=== PATIENT | female | born 1945 | race Hispanic/Latino ===

== ENCOUNTER 2018-06-26 01:02 | Inpatient (IN) | payer MEDICARE | END 2018-07-07 19:40 | LOC: EDH 01:02 → 2DH 06-30 18:31 → 2CV 07-01 04:50 → 2CH 07-02 15:06 → 2AH 07-05 14:21 → EDHIP 02:50 → 4CH 08:12 | DX: N17.9 Acute kidney failure, unspecified (principal); I50.33 Acute on chronic diastolic (congestive) heart failure; I63.9 Cerebral infarction, unspecified; J96.01 Acute respiratory failure with hypoxia; I13.2 Hypertensive heart and chronic kidney disease with heart failure and with stage 5 chronic kidney disease, or end stage renal disease; N39.0 Urinary tract infection, site not specified; Z68.41 Body mass index [BMI] 40.0-44.9, adult; S06.9X9A Unspecified intracranial injury with loss of consciousness of unspecified duration, initial encounter; Z99.11 Dependence on respirator [ventilator] status; N18.5 Chronic kidney disease, stage 5; Z82.3 Family history of stroke; D63.8 Anemia in other chronic diseases classified elsewhere; E11.21 Type 2 diabetes mellitus with diabetic nephropathy; E11.22 Type 2 diabetes mellitus with diabetic chronic kidney disease; E11.40 Type 2 diabetes mellitus with diabetic neuropathy, unspecified; E66.01 Morbid (severe) obesity due to excess calories; I65.23 Occlusion and stenosis of bilateral carotid arteries; N18.6 End stage renal disease ==

== ENCOUNTER 2018-11-03 13:38 | Emergency (ER) | payer MEDICARE ==
[~2018-11-03 13:38] MED LIST: ALPR0.5T8 PO; BENZ200C53 PO; CITA40TA6 PO; CLOP75TA14 PO; CYCL30DR OU; FAMO20TA8 PO; FLUT16H EN; FURO80TA3 PO; GABA-529 PO; INSU100V12 SQ; MAGOX PO; METO2.5T2 PO; MONT10TA24 PO; OLOP5DRO14 OU; ONDA4TAB10 PO; PIND10TA2 PO
[2018-11-03] MEDS ORDERED: DEXTROSE 50%-WATER 50 ML DISP.SYRIN IV ONE (14:45)
[2018-11-03 14:49] LABS: BASOPHILS % (AUTO) 0.7 % (0.0-5.0); CREATININE 2.5 mg/dL (0.5-1.5); HEMATOCRIT 43.3 % (36-48); LYMPHOCYTES % (AUTO) 17.8 % (21.0-51.0); MEAN CORPUSCULAR HEMOGLOBIN 31.2 pg (27.0-33.0); MEAN CORPUSCULAR HGB CONC 33.2 g/dL (32.0-36.0); MONOCYTES % (AUTO) 5.2 % (3.0-13.0); NEUTROPHILS % (AUTO) 73.3 % (40.0-77.0); NUCLEATED RED BLOOD CELLS 0.1 % (0.0-0.19); PLATELET COUNT (AUTO) 180 K/uL (130-400); POTASSIUM 4.5 mmol/L (3.5-5.1); RED CELL DISTRIBUTION WIDTH 16.5 % (11.0-15.5); WHITE BLOOD COUNT (AUTO) 8.9 K/uL (4.8-10.8)
[2018-11-03 14:54] LABS: ALBUMIN 3.4 g/dL (3.5-5.0); BILIRUBIN,DIRECT 0.1 mg/dL (0.0-0.3); BILIRUBIN,TOTAL 0.3 mg/dL (0.2-1.0)
== END 2018-11-03 18:17 | disposition home or self-care (01) ==
LOC: EDH 13:38
DX: E11.649 Type 2 diabetes mellitus with hypoglycemia without coma (principal); I12.0 Hypertensive chronic kidney disease with stage 5 chronic kidney disease or end stage renal disease; E11.22 Type 2 diabetes mellitus with diabetic chronic kidney disease; N18.6 End stage renal disease; Z86.73 Personal history of transient ischemic attack (TIA), and cerebral infarction without residual deficits; Z90.49 Acquired absence of other specified parts of digestive tract; Z98.890 Other specified postprocedural states; Z99.2 Dependence on renal dialysis
CPT/HCPCS: 36415; 80048; 80076; 82550; 82948 ×3; 83690; 84484; 85025; 93005; 96374; 99285; J7070

== ENCOUNTER 2018-11-13 06:48 | Emergency (ER) | payer MEDICARE ==
[2018-11-13 07:32] LABS: EOSINOPHILS % (AUTO) 8.7 % (0.0-8.0); HEMATOCRIT 36.9 % (36-48); LYMPHOCYTES % (AUTO) 28.9 % (21.0-51.0); MEAN CORPUSCULAR HEMOGLOBIN 30.8 pg (27.0-33.0); MEAN CORPUSCULAR HGB CONC 32.4 g/dL (32.0-36.0); MEAN CORPUSCULAR VOLUME 95.2 fL (79-99); MONOCYTES % (AUTO) 12.2 % (3.0-13.0); NEUTROPHILS % (AUTO) 49.2 % (40.0-77.0); PLATELET COUNT (AUTO) 229 K/uL (130-400); RED BLOOD CELL COUNT(AUTO) 3.88 MIL/uL (4.00-5.50); RED CELL DISTRIBUTION WIDTH 17.3 % (11.0-15.5); WHITE BLOOD COUNT (AUTO) 6.5 K/uL (4.8-10.8)
[2018-11-13 07:58] LABS: INR 0.95 (0.85-1.15)
[2018-11-13 08:15] LABS: APPEARANCE,URINE Clear (CLEAR); BILIRUBIN,URINE Negative (NEGATIVE); COLOR,URINE Yellow (YELLOW); GLUCOSE, URINE (UA) Negative (NEGATIVE); KETONES,URINE Negative (NEGATIVE); LEUKOCYTE ESTERASE ,URINE Trace (NEGATIVE); NITRATE,URINE Negative (NEGATIVE); OCCULT BLOOD,URINE Negative (NEGATIVE); PH,URINE 5.5 (5.0-8.0); PROTEIN,URINE Negative (NEGATIVE); UROBILINOGEN,URINE 0.2 mg/dL (0.2-1.0)
[2018-11-13 08:18] LABS: ALBUMIN 3.2 g/dL (3.5-5.0); BILIRUBIN,TOTAL 0.2 mg/dL (0.2-1.0); CREATININE 3.1 mg/dL (0.5-1.5); TOTAL PROTEIN, SERUM 6.6 g/dL (6.0-8.3)
[2018-11-13 08:30] LABS: BACTERIA,URINE Rare /HPF (None Seen); RBC,URINE None Seen /HPF (0-1); SQUAMOUS EPITHELIAL CELL,UR 0-2 /HPF (0-2); WBC,URINE 0-1 /HPF (0-1)
[2018-11-13] MEDS ORDERED: DEXTROSE 50%-WATER 50 ML DISP.SYRIN IV ONE (10:07)
[2018-11-13] MEDS ORDERED: LIDOCAINE HCL 1% MDV 50ML VIAL ONE (10:38)
== END 2018-11-13 15:20 | disposition home or self-care (01) ==
LOC: EDH 06:48
DX: T82.898A Other specified complication of vascular prosthetic devices, implants and grafts, initial encounter (principal); I12.0 Hypertensive chronic kidney disease with stage 5 chronic kidney disease or end stage renal disease; E11.22 Type 2 diabetes mellitus with diabetic chronic kidney disease; N18.6 End stage renal disease; E11.649 Type 2 diabetes mellitus with hypoglycemia without coma; E78.5 Hyperlipidemia, unspecified; Z86.73 Personal history of transient ischemic attack (TIA), and cerebral infarction without residual deficits; Z99.2 Dependence on renal dialysis; Z90.49 Acquired absence of other specified parts of digestive tract; Z98.890 Other specified postprocedural states
CPT/HCPCS: 36415; 36558; 71045; 77001; 80053; 81001; 82550; 82948 ×2; 84484; 85025; 85610; 85730; 87804 ×2; 93005; 96374; 99285; C1750; C1769 ×3; C1894; J1644 ×2; J3490; J7070

== ENCOUNTER 2019-11-11 16:00 | Inpatient (IN) | payer MEDICARE ==
[~2019-11-11] VITALS: Ht 154.9 cm; Wt 85.4 kg
[~2019-11-11 16:00] MED LIST changes: +ALPR1TAB7 PO; +ARIP10TA16 PO; +ASPI-1005 PO; +ATOR20TA65 PO; -BENZ200C53 PO; +BUDE10.2 IH; +CITA-107 PO; -CITA40TA6 PO; -CLOP75TA14 PO; -CYCL30DR OU; +DOCU240C80 PO; -FAMO20TA8 PO; -FLUT16H EN; +FLUT16H NS; +FOLI1TAB85 PO; +FURO40TA5 PO; -FURO80TA3 PO; -INSU100V12 SQ; +INSU100V37 SQ; +L.AC1CAP6 PO; +LEVO500T89 PO; -MAGOX PO; -METO2.5T2 PO; -MONT10TA24 PO; +MONT10TA26 PO; +NITR0.4T50 SL; -OLOP5DRO14 OU; -ONDA4TAB10 PO; +SEVE800T7 PO
[2019-11-11 16:34] LABS: EOSINOPHILS % (AUTO) 5.6 % (0.0-8.0); HEMATOCRIT 36.7 % (36-48); LYMPHOCYTES % (AUTO) 25.6 % (21.0-51.0); MEAN CORPUSCULAR HEMOGLOBIN 32.5 pg (27.0-33.0); MEAN CORPUSCULAR HGB CONC 32.2 g/dL (32.0-36.0); MEAN CORPUSCULAR VOLUME 101.1 fL (79-99); MONOCYTES % (AUTO) 9.9 % (3.0-13.0); NEUTROPHILS % (AUTO) 57.3 % (40.0-77.0); PLATELET COUNT (AUTO) 298 K/uL (130-400); RED BLOOD CELL COUNT(AUTO) 3.63 MIL/uL (4.00-5.50); RED CELL DISTRIBUTION WIDTH 13.9 % (11.0-15.5); WHITE BLOOD COUNT (AUTO) 8.6 K/uL (4.8-10.8)
[2019-11-11 17:40] LABS: CARBON DIOXIDE 25 mmol/L (21-32); CHLORIDE 102 mmol/L (101-111); CREATININE 3.3 mg/dL (0.5-1.5); GLOMERULAR FILTR. RATE CALC 15 mL/min (>60); GLUCOSE,RANDOM 83 mg/dL (70-105); POTASSIUM 4.4 mmol/L (3.5-5.1); SODIUM SERUM 138 mmol/L (136-145); UREA NITROGEN, BLOOD 26 mg/dL (7-18)
[2019-11-11 17:41] LABS: PARTIAL THROMBOPLASTIN TIME 27.8 SEC (26.3-35.5); PROTHROMBIN TIME 10.8 SEC (9.6-11.6)
[2019-11-11 17:50] LABS: ALANINE AMINOTRANSFERASE 17 U/L (12-78); ALBUMIN 3.3 g/dL (3.5-5.0); ASPARTATE AMINOTRANSFERASE 21 U/L (10-37); BILIRUBIN,DIRECT 0.1 mg/dL (0.0-0.3); BILIRUBIN,TOTAL 0.4 mg/dL (0.2-1.0); CREATINE KINASE, TOTAL 60 U/L (21-232); TOTAL PROTEIN, SERUM 7.2 g/dL (6.0-8.3); TROPONIN I < 0.04 ng/mL (0.00-0.06)
[2019-11-11] MEDS ORDERED: HEPARIN SODIUM 5000UNIT/ML 1ML VIAL ONE (18:45)
[2019-11-11] MEDS ORDERED: ONDANSETRON HCL 4 MG/2 ML VIAL IV PRN (20:30)
[2019-11-11] MEDS ORDERED: HEPARIN SODIUM 5000UNIT/ML 1ML VIAL SQ PRN (20:45)
[2019-11-11] MEDS ORDERED: FAMOTIDINE/PF 20 MG/2 ML VIAL IV ONE (21:00)
[2019-11-11] MEDS ORDERED: FAMOTIDINE/PF 20 MG/2 ML VIAL IV SCH (21:00)
[2019-11-11] MEDS ORDERED: HEPARIN 25000 UNITS/250 ML D5W 250 ML IV ONE (21:00)
[2019-11-11 21:01] LABS: HEMOGLOBIN A1C 6.2 % (4.0-6.0)
[2019-11-11 23:25] VITALS: BP 160/66
--- NOTE | 2019-11-12 | NUR ---
NEW ADMISSION PT RECEIVED INTO ROOM 420 VIA STRETCHER, HEPARIN GTT INFUSING WITHOUT DIFFICULTY. PT AAOX4, CURRENTLY DENIES ANY PAIN. PT PLEASANT AND COOPERATIVE. PT ORIENTED TO ROOM, CALLBELL. TELE PACK APPLIED. NURSING DATA BASE COMPLETED, NURSING ASSESSMENT COMPLETED SEE FLOW SHEET. FAMILY HISTORY COMPLETED.
[2019-11-12] MEDS ORDERED: METO-408 PO (02:10)
[2019-11-12] MEDS ORDERED: LIDOCAINE CREAM (02:25)
[2019-11-12] MEDS ORDERED: TRAM50TA4 PO (02:25)
[2019-11-12] MEDS ORDERED: OFLO5DRO21 OT (02:25)
[2019-11-12 04:09] VITALS: BP 137/63
[2019-11-12 04:09] LABS: EOSINOPHILS % (AUTO) 7.6 % (0.0-8.0); HEMATOCRIT 33.5 % (36-48); LYMPHOCYTES % (AUTO) 34.2 % (21.0-51.0); MEAN CORPUSCULAR HEMOGLOBIN 32.1 pg (27.0-33.0); MEAN CORPUSCULAR HGB CONC 31.3 g/dL (32.0-36.0); MEAN CORPUSCULAR VOLUME 102.4 fL (79-99); NEUTROPHILS % (AUTO) 45.6 % (40.0-77.0); PLATELET COUNT (AUTO) 219 K/uL (130-400); RED BLOOD CELL COUNT(AUTO) 3.27 MIL/uL (4.00-5.50)
[2019-11-12 04:28] LABS: ALBUMIN 2.9 g/dL (3.5-5.0); BILIRUBIN,TOTAL 0.3 mg/dL (0.2-1.0); CREATININE 3.4 mg/dL (0.5-1.5); POTASSIUM 3.7 mmol/L (3.5-5.1); TOTAL PROTEIN, SERUM 6.3 g/dL (6.0-8.3)
[2019-11-12 07:08] LABS: INR 1.05 (0.85-1.15); PROTHROMBIN TIME 11.3 SEC (9.6-11.6)
[2019-11-12 07:50] VITALS: BP 148/57
[2019-11-12 07:54] LABS: PARTIAL THROMBOPLASTIN TIME > 120.0 SEC (26.3-35.5)
[2019-11-12] MEDS: FAMOTIDINE/PF 20 MG/2 ML VIAL IV SCH (09:17)
--- NOTE | 2019-11-12 09:40 | NUR ---
DYSPHAGIA TONNY COMPLETED -S/S OF ASPIRATION AT THIS TIME. RECOMMEND REGULAR SOLIDS, THIN LIQUIDS, PILLS WHOLE WITH LIQUIDS TOLERATED. ASSOCIATE MERCHANDISER COORDINATED WITH NURSE FISHMAN. Addendum: 11/12/[address]OLANDA MATA Amended: Links added.
[2019-11-12 11:28] VITALS: BP 107/58
--- NOTE | 2019-11-12 12:18 | NUR ---
DCP: HOME Sw met with pt who states she lives with her daughter Rhonda Shearer [phone]. Pt states daughter is her provider 7-1 daily, can't remember name of agency. Daughter assists with ADLS, home management and transportation to dialysis at [facility]. Pt has walker, hospital bed, O2, nebulizer and states she needs a w/c. PCP is Herber Berman and she uses [facility] for rx. Plan is home with daughter and current services. Addendum: 11/12/19 at 1221 by TANVIR HAWK Amended: Links added.
--- NOTE | 2019-11-12 13:20 | NUR ---
CM NOTE/PENDING HOME O2 EVAL MEET WITH PRIMARY NURSE, KYE SORIA, WHO STATES PATIENT IS ON HEPARIN DRIP AND NOT READY FOR DC HOME. EXPLAINED HOME O2 EVAL NEEDS TO BE DONE, EARLIEST, 48HR PRIOR TO DC HOME FOR TEST TO BE VALID WHEN SUBMITTING TO DME. CM TO FOLLOW UP
[2019-11-12] MEDS: ACETAMINOPHEN 325 MG TAB PO PRN (13:33)
[2019-11-12] MEDS ORDERED: HEPARIN 25000 UNITS/250 ML D5W 250 ML IV ONE (14:49)
[2019-11-12] MEDS ORDERED: HEPARIN 25000 UNITS/250 ML D5W 250 ML IV SCH (15:00)
[2019-11-12] MEDS ORDERED: HEPARIN SODIUM 5000UNIT/ML 1ML VIAL SQ PRN (15:00)
[2019-11-12 15:29] LABS: INR 1.01 (0.85-1.15); PROTHROMBIN TIME 10.9 SEC (9.6-11.6)
[2019-11-12 15:35] LABS: PARTIAL THROMBOPLASTIN TIME > 120.0 SEC (26.3-35.5)
[2019-11-12 16:00] VITALS: BP 124/60
[2019-11-12 19:00] VITALS: BP 134/66
[2019-11-12] MEDS ORDERED: EPOETIN ALFA 10,000 UNIT/ML VIAL SQ SCH (21:00)
[2019-11-12 23:00] VITALS: BP 129/55
[2019-11-12 23:31] LABS: INR 1.03 (0.85-1.15); PROTHROMBIN TIME 11.1 SEC (9.6-11.6)
[2019-11-12 23:40] LABS: PARTIAL THROMBOPLASTIN TIME 96.6 SEC (26.3-35.5)
[2019-11-13] VITALS (10 sets, daily range): BP systolic 101–188; BP diastolic 54–162
[2019-11-13 04:05] LABS: HEMATOCRIT 33.7 % (36-48); MEAN CORPUSCULAR HEMOGLOBIN 32.3 pg (27.0-33.0); MEAN CORPUSCULAR HGB CONC 32.9 g/dL (32.0-36.0); RED BLOOD CELL COUNT(AUTO) 3.44 MIL/uL (4.00-5.50); RED CELL DISTRIBUTION WIDTH 13.4 % (11.0-15.5); WHITE BLOOD COUNT (AUTO) 7.1 K/uL (4.8-10.8)
[2019-11-13 04:32] LABS: CREATININE 3.5 mg/dL (0.5-1.5); MAGNESIUM 1.9 mg/dL (1.80-2.40); PHOSPHORUS 4.5 mg/dL (2.5-4.9); POTASSIUM 3.5 mmol/L (3.5-5.1); THYROID STIMULATING HORMONE 0.61 uIU/mL (0.36-3.74)
[2019-11-13] MEDS ORDERED: TRAMADOL HCL 50 MG TABLET PO PRN (08:15)
[2019-11-13] MEDS ORDERED: NITROGLYCERIN 0.4 MG SL TAB SL SCH (08:15)
[2019-11-13] MEDS ORDERED: PINDOLOL 5 MG TAB PO SCH (08:15)
[2019-11-13] MEDS ORDERED: FLUTICASONE PROPIONATE 50MCG/SPRAY 16 GM BOTTLE NS PRN (08:15)
--- NOTE | 2019-11-13 08:50 | NUR ---
FOLLOW UP COMPLETED. GUARD SUPERVISOR COORDINATED WITH NURSE MARSH. Pt TOLERATING DIET RECOMMENDATIONS WITH NO S/S OF ASPIRATION AT THIS TIME. CONTINUE WITH PLAN OF CARE TOLERATED. Addendum: 11/13/[address]OLANDA MATA Amended: Links added.
[2019-11-13] MEDS ORDERED: ALPRAZOLAM 0.5 MG TABLET PO SCH (09:00)
[2019-11-13] MEDS: SEVELAMER HCL 800 MG TABLET PO SCH ×3 (10:06→17:21)
[2019-11-13] MEDS: FAMOTIDINE/PF 20 MG/2 ML VIAL IV SCH (10:06)
[2019-11-13] MEDS: GABAPENTIN 100 MG CAPSULE PO SCH (10:07)
[2019-11-13] MEDS: FUROSEMIDE 40 MG TABLET PO SCH (10:07)
[2019-11-13] MEDS: METOPROLOL SUCCINATE 50 MG TAB.SR.24H PO SCH (10:07)
--- NOTE | 2019-11-13 13:07 | NUR ---
CM NOTE/O2 NOT QUALIFIES PATIENT NOTED TO BE ON ROOM AIR AT REST,NO DISTRESS NOTED. CHART REVIEWED, PATIENT ON ROOM AIR WITH O2 SATURATIONS OF ABOVE 95%, WILL NOT QUALIFY FOR HOME O2, PRIMARY NURSE, MARY LOU SORIA, MADE AWARE.
[2019-11-13] MEDS ORDERED: HEPARIN SODIUM 1000UNIT/ML 10ML VIAL ONE (13:29)
[2019-11-13] MEDS ORDERED: NITROGLYCERIN 2 MG/VIAL VIAL IV ONE (13:30)
[2019-11-13] MEDS ORDERED: LIDOCAINE HCL 2% 20ML ONE (13:30)
[2019-11-13] MEDS ORDERED: IODIXANOL 320 MG/ML 100 ML VIAL ONE (13:30)
[2019-11-13 14:01] LABS: INR 0.98 (0.85-1.15); PARTIAL THROMBOPLASTIN TIME 32.2 SEC (26.3-35.5); PROTHROMBIN TIME 10.6 SEC (9.6-11.6)
[2019-11-13] MEDS ORDERED: MIDAZOLAM HCL 1 MG/ML 2ML VIAL ONE (14:41)
[2019-11-13] MEDS ORDERED: FENTANYL CITRATE PF 50 MCG/1 ML 2ML VIAL ONE (14:41)
[2019-11-13] MEDS ORDERED: LABETALOL HCL 5 MG/ML 20ML VIAL IV ONE (15:11)
--- NOTE | 2019-11-13 15:24 | NUR ---
RECEIVED CALL BACK FROM SHYLA. MADE HER AWARE OF SMALL BOWEL ENTEROSCOPY RESULTS AND THE RECOMMENDATIONS OF DR. VELA. NO NEW ORDERS AT THIS TIME. SHYLA VERBALLY MADE DR. VELÁSQUEZ AWARE OF RESULTS Addendum: 11/13/19 at 1530 by SALMA GAMING RN RN WRONG PATIENT
[2019-11-13] MEDS ORDERED: HYDRALAZINE HCL 20 MG/ML VIAL IV PRN (18:15)
[2019-11-13] MEDS: AMLODIPINE BESYLATE 5 MG TAB PO SCH ×2 (18:40→21:00)
[2019-11-13] MEDS ORDERED: ALPRAZOLAM 1 MG TAB PO SCH (21:00)
[2019-11-13] MEDS: ATORVASTATIN CALCIUM 20 MG TABLET PO SCH (21:17)
[2019-11-13] MEDS: MONTELUKAST SODIUM 10 MG TAB PO SCH (21:18)
[2019-11-13] MEDS: CITALOPRAM 20 MG TABLET PO SCH (21:18)
[2019-11-13] MEDS: ARIPIPRAZOLE 5 MG TABLET PO SCH (21:18)
--- NOTE | 2019-11-13 23:59 | NUR ---
Patient is resting at this time but arousable, instructed to be NPO at this time for a surgical procedure tomorrow demonstrated understanding.Patient kept NPO at this time.
[2019-11-14] VITALS (24 sets, daily range): BP systolic 92–158; BP diastolic 39–72
[2019-11-14 04:38] LABS: HEMATOCRIT 35.4 % (36-48); MEAN CORPUSCULAR HEMOGLOBIN 32.7 pg (27.0-33.0); MEAN CORPUSCULAR HGB CONC 33.1 g/dL (32.0-36.0); MEAN CORPUSCULAR VOLUME 98.9 fL (79-99); RED BLOOD CELL COUNT(AUTO) 3.58 MIL/uL (4.00-5.50); RED CELL DISTRIBUTION WIDTH 13.5 % (11.0-15.5); WHITE BLOOD COUNT (AUTO) 9.3 K/uL (4.8-10.8)
[2019-11-14 04:50] LABS: INR 0.99 (0.85-1.15); PARTIAL THROMBOPLASTIN TIME 25.8 SEC (26.3-35.5); PROTHROMBIN TIME 10.7 SEC (9.6-11.6)
[2019-11-14 04:56] LABS: CREATININE 4.8 mg/dL (0.5-1.5); PHOSPHORUS 4.7 mg/dL (2.5-4.9)
[2019-11-14] MEDS: SEVELAMER HCL 800 MG TABLET PO SCH ×3 (08:00→17:00)
[2019-11-14] MEDS: GABAPENTIN 100 MG CAPSULE PO SCH (09:00)
[2019-11-14] MEDS: FUROSEMIDE 40 MG TABLET PO SCH (09:00)
[2019-11-14] MEDS ORDERED: OCTYL 2-CYANOACRYLATE 1 EACH TP ONE (09:48)
[2019-11-14] MEDS ORDERED: CEFAZOLIN SODIUM 1 GM VIAL ONE (09:48)
[2019-11-14] MEDS ORDERED: CEFAZOLIN SODIUM 1 GM VIAL IVP ONE (10:00)
[2019-11-14] MEDS: AMLODIPINE BESYLATE 5 MG TAB PO SCH ×2 (10:11→19:57)
[2019-11-14] MEDS: LISINOPRIL 10 MG TABLET PO SCH (10:12)
[2019-11-14] MEDS: METOPROLOL SUCCINATE 50 MG TAB.SR.24H PO SCH (10:12)
[2019-11-14] MEDS ORDERED: SODIUM CHLORIDE 0.9% 1000ML 1,000 ML IV ONE (10:23)
[2019-11-14] MEDS ORDERED: FENTANYL CITRATE PF 50 MCG/1 ML 2ML VIAL ONE (10:32)
[2019-11-14] MEDS ORDERED: SUCCINYLCHOLINE CHLORIDE 20 MG/ML 10 ML VIAL ONE (10:32)
[2019-11-14] MEDS ORDERED: LIDOCAINE PF 2% 5ML ABBOJECT ONE (10:32)
[2019-11-14] MEDS ORDERED: MIDAZOLAM HCL 1 MG/ML 2ML VIAL ONE (10:32)
[2019-11-14] MEDS ORDERED: PROPOFOL 10 MG/ML 20ML VIAL IV ONE (10:32)
[2019-11-14] MEDS ORDERED: ROCURONIUM 10MG/1ML SYR 10 MG/ML ML ONE (10:33)
[2019-11-14] MEDS ORDERED: PHENYLEPHRINE HCL 10 MG/ML 1ML VIAL IV ONE (10:41)
[2019-11-14] MEDS ORDERED: HEPARIN SODIUM 1000UNIT/ML 10ML VIAL ONE (12:16)
[2019-11-14] MEDS ORDERED: TRAMADOL HCL 50 MG TABLET PO PRN (12:30)
[2019-11-14] MEDS ORDERED: NEOSTIGMINE 5MG/5ML SYR IV ONE (12:55)
[2019-11-14] MEDS ORDERED: GLYCOPYRROLATE 1 MG/5 ML SYRINGE ONE (12:55)
[2019-11-14] MEDS ORDERED: MEPERIDINE-PF 25 MG/ML SYG ONE (14:05)
--- NOTE | 2019-11-14 14:30 | NUR ---
received pt back from pacu, pt aaox3, denies pain at this time, lying flat, dressing to left groin cdi; i have instructed her on need to stay flat for 4 hours to prevent bleeding at puncture site; doppler pulses positive to feet.
--- NOTE | 2019-11-14 15:35 | NUR ---
RD NOTIFICATION - ESRD, DM Pt NPO at time of screen pending procedure. Pt s/p procedure, diet advanced to Clear Liquid Diet order. Pt with ESRD on Hemodialysis. Previous Renal and Heart healthy Nutrition Education provided in past visit. Recommend advance diet as tolerated to Renal Dialysis, Heart healthy Diet order, when medically feasible RD to follow up with education reinforcement. Please notify as additional nutrition concerns arise. Thank you. Addendum: 11/14/19 at [address] Amended: Links added.
--- NOTE | 2019-11-14 17:35 | NUR ---
pt's feet remain warm, dressing to left groin has remained cdi; pt did have episode during dialysis of low blood pressure and she was becoming clammy; i placed her in trendelenberg and dialysis nurse spoke to dr aburto and stopped the treatment; she has already given her albumin to help with blood pressure; once treatment stopped bp returned to 150/70 and color improving; will cont to monitor.
[2019-11-14] MEDS ORDERED: SODIUM CHLORIDE 0.9% 1000ML 1,000 ML IV PRN (18:45)
[2019-11-14] MEDS ORDERED: 0.9% SODIUM CHLORIDE 1000 ML IV BAG IV PRN (18:45)
[2019-11-14] MEDS ORDERED: ACETAMINOPHEN 325 MG TAB PO PRN (18:45)
[2019-11-14] MEDS: CEFAZOLIN SODIUM 1 GM VIAL IVP SCH (19:55)
[2019-11-14] MEDS: TRAMADOL HCL 50 MG TABLET PO PRN (19:56)
[2019-11-14] MEDS: MONTELUKAST SODIUM 10 MG TAB PO SCH (19:56)
[2019-11-14] MEDS: ARIPIPRAZOLE 5 MG TABLET PO SCH (19:57)
[2019-11-14] MEDS: CITALOPRAM 20 MG TABLET PO SCH (19:57)
[2019-11-14] MEDS: ATORVASTATIN CALCIUM 20 MG TABLET PO SCH (19:57)
[2019-11-15 04:29] VITALS: BP 118/46
[2019-11-15] MEDS: CEFAZOLIN SODIUM 1 GM VIAL IVP SCH ×2 (04:43→11:43)
[2019-11-15 06:06] LABS: HEMATOCRIT 29.2 % (36-48); MEAN CORPUSCULAR HEMOGLOBIN 32.1 pg (27.0-33.0); MEAN CORPUSCULAR HGB CONC 31.5 g/dL (32.0-36.0); MEAN CORPUSCULAR VOLUME 101.7 fL (79-99); RED BLOOD CELL COUNT(AUTO) 2.87 MIL/uL (4.00-5.50); RED CELL DISTRIBUTION WIDTH 13.8 % (11.0-15.5); WHITE BLOOD COUNT (AUTO) 8.8 K/uL (4.8-10.8)
[2019-11-15 06:29] LABS: CREATININE 5.4 mg/dL (0.5-1.5); PHOSPHORUS 5.4 mg/dL (2.5-4.9); POTASSIUM 4.2 mmol/L (3.5-5.1)
[2019-11-15 07:30] VITALS: BP 128/48
[2019-11-15] MEDS: FAMOTIDINE/PF 20 MG/2 ML VIAL IV SCH (07:45)
[2019-11-15] MEDS: SEVELAMER HCL 800 MG TABLET PO SCH ×3 (07:45→16:26)
[2019-11-15] MEDS: FUROSEMIDE 20 MG TABLET PO SCH (07:47)
[2019-11-15] MEDS: AMLODIPINE BESYLATE 5 MG TAB PO SCH ×2 (07:47→21:04)
[2019-11-15] MEDS: METOPROLOL SUCCINATE 50 MG TAB.SR.24H PO SCH (07:47)
[2019-11-15] MEDS: GABAPENTIN 100 MG CAPSULE PO SCH (07:47)
[2019-11-15] MEDS: LISINOPRIL 10 MG TABLET PO SCH (07:47)
[2019-11-15] MEDS: FUROSEMIDE 40 MG TABLET PO SCH (07:47)
[2019-11-15] MEDS: ASPIRIN 81MG TAB.CHEW PO SCH (09:00)
[2019-11-15] MEDS: ENOXAPARIN SODIUM 30 MG/0.3 ML SQ SCH (09:00)
[2019-11-15] MEDS ORDERED: LORAZEPAM 0.5 MG TABLET PO SCH (09:15)
[2019-11-15 11:00] VITALS: BP 121/49
[2019-11-15] MEDS: CLOPIDOGREL BISULFATE 75 MG TAB PO SCH (11:15)
[2019-11-15] MEDS: CEPHALEXIN 500 MG CAPSULE PO SCH (11:15)
[2019-11-15] MEDS ORDERED: RENAL DOSE IV SCH (14:00)
--- NOTE | 2019-11-15 14:19 | NUR ---
CM NOTE/[facility] REFERRAL NEW ORDER FOR SKILLED SNF FOR PT. MEET WITH PATIENT IN ROOM, PEBBLES FILLED FOR [facility]. PATIENT ASKED THAT I CALL DAUGHTER TO CONFIRM SNF. DAUGHTER CALLED, [facility] [phone], CONFIRMED SNF CHOICE. YING FROM [facility] MADE AWARE OF REFERRAL, SENT VIA EMAIL. PENDING [facility] TESTING AND AUTHORIZATION/ACCEPTANCE, CM TO FOLLOW UP.
[2019-11-15 16:00] VITALS: BP 121/48
[2019-11-15] MEDS: TRAMADOL HCL 50 MG TABLET PO PRN (18:30)
[2019-11-15 20:00] VITALS: BP 124/49
[2019-11-15] MEDS ORDERED: EPOETIN ALFA 10,000 UNIT/ML VIAL SQ SCH (21:00)
[2019-11-15] MEDS: MONTELUKAST SODIUM 10 MG TAB PO SCH (21:04)
[2019-11-15] MEDS: ARIPIPRAZOLE 5 MG TABLET PO SCH (21:04)
[2019-11-15] MEDS: CITALOPRAM 20 MG TABLET PO SCH (21:04)
[2019-11-15] MEDS: ATORVASTATIN CALCIUM 20 MG TABLET PO SCH (21:04)
[2019-11-16] VITALS (7 sets, daily range): BP systolic 108–133; BP diastolic 41–57
[2019-11-16] MEDS: CEPHALEXIN 500 MG CAPSULE PO SCH ×3 (02:00→12:02)
[2019-11-16 04:34] LABS: CREATININE 3.9 mg/dL (0.5-1.5); HEMATOCRIT 28.6 % (36-48); MEAN CORPUSCULAR HEMOGLOBIN 31.6 pg (27.0-33.0); MEAN CORPUSCULAR HGB CONC 31.1 g/dL (32.0-36.0); MEAN CORPUSCULAR VOLUME 101.4 fL (79-99); PLATELET COUNT (AUTO) 182 K/uL (130-400); POTASSIUM 4.1 mmol/L (3.5-5.1); RED BLOOD CELL COUNT(AUTO) 2.82 MIL/uL (4.00-5.50); RED CELL DISTRIBUTION WIDTH 13.9 % (11.0-15.5); WHITE BLOOD COUNT (AUTO) 9.8 K/uL (4.8-10.8)
[2019-11-16 05:04] LABS: BAND NEUTROPHILS % (MANUAL) 2 % (0-2); BASOPHILS % (MANUAL) 1 % (0-2); EOSINOPHILS % (MANUAL) 3 % (1-6); LYMPHOCYTES % (MANUAL) 26 % (22-44); MAN.DIFF COMMENT-IMPRESSION MANUAL DIFFERENTIAL; MONOCYTES % (MANUAL) 15 % (2-9); SEGMENTED NEUTROPHILS % 53 % (40-70)
[2019-11-16 05:05] LABS: PLATELET MORPHOLOGY COMMENT ADEQUATE
[2019-11-16] MEDS: ACETAMINOPHEN 325 MG TAB PO PRN (07:02)
--- NOTE | 2019-11-16 07:50 | NUR ---
RECEIVED PATIENT ON BED WITH NO C/O SOB NOR PAIN. PT HOWEVER IS WHEEZING ON AUSCULTATION. PATIENT IS SCHEDULED FOR DIALYSIS TODAY. FULL ASSESSMENT DONE. CALL LIGHT WITHIN REACH.
[2019-11-16] MEDS: FUROSEMIDE 20 MG TABLET PO SCH (08:47)
[2019-11-16] MEDS: GABAPENTIN 100 MG CAPSULE PO SCH (08:47)
[2019-11-16] MEDS: AMLODIPINE BESYLATE 5 MG TAB PO SCH ×2 (08:47→20:52)
[2019-11-16] MEDS: FAMOTIDINE/PF 20 MG/2 ML VIAL IV SCH (08:47)
[2019-11-16] MEDS: SEVELAMER HCL 800 MG TABLET PO SCH ×3 (08:47→16:09)
[2019-11-16] MEDS: FUROSEMIDE 40 MG TABLET PO SCH (08:47)
[2019-11-16] MEDS: ENOXAPARIN SODIUM 30 MG/0.3 ML SQ SCH (08:48)
[2019-11-16] MEDS: LISINOPRIL 10 MG TABLET PO SCH (08:48)
[2019-11-16] MEDS: METOPROLOL SUCCINATE 50 MG TAB.SR.24H PO SCH (08:48)
--- NOTE | 2019-11-16 09:59 | NUR ---
cm note spoke to chris with [facility] and states pt is still pending approval, they are awaiting for their covid test they performed, states will inform cm if approved. updated primary nurse nathaniel.
[2019-11-16] MEDS: ASPIRIN 81MG TAB.CHEW PO SCH (12:02)
[2019-11-16] MEDS: CLOPIDOGREL BISULFATE 75 MG TAB PO SCH (12:02)
[2019-11-16] MEDS ORDERED: IPRATROPIUM/ALBUTEROL SULFATE 3 ML SOLUTION IH PRN (12:15)
[2019-11-16] MEDS: HYDROXYZINE HCL 25 MG TABLET PO PRN ×2 (12:25→20:53)
--- NOTE | 2019-11-16 14:00 | NUR ---
PATIENT COMPLETED DIALYSIS TODAY. 1L OUT. PATIENT TOLERATED WELL.
[2019-11-16] MEDS: MONTELUKAST SODIUM 10 MG TAB PO SCH (20:52)
[2019-11-16] MEDS: CITALOPRAM 20 MG TABLET PO SCH (20:52)
[2019-11-16] MEDS: ATORVASTATIN CALCIUM 20 MG TABLET PO SCH (20:52)
[2019-11-16] MEDS: ARIPIPRAZOLE 5 MG TABLET PO SCH (20:53)
[2019-11-17 03:47] VITALS: BP 120/38
[2019-11-17] MEDS: ACETAMINOPHEN 325 MG TAB PO PRN ×2 (05:37→19:25)
[2019-11-17 07:00] VITALS: BP 144/54
[2019-11-17] MEDS: FUROSEMIDE 40 MG TABLET PO SCH (09:00)
[2019-11-17] MEDS: AMLODIPINE BESYLATE 5 MG TAB PO SCH ×2 (09:01→21:14)
[2019-11-17] MEDS: CLOPIDOGREL BISULFATE 75 MG TAB PO SCH (09:01)
[2019-11-17] MEDS: FAMOTIDINE 20MG TAB 20 MG TAB PO SCH (09:01)
[2019-11-17] MEDS: SEVELAMER HCL 800 MG TABLET PO SCH ×4 (09:01→16:52)
[2019-11-17] MEDS: GABAPENTIN 100 MG CAPSULE PO SCH (09:02)
[2019-11-17] MEDS: LISINOPRIL 10 MG TABLET PO SCH (09:02)
[2019-11-17] MEDS: ASPIRIN 81MG TAB.CHEW PO SCH (09:03)
[2019-11-17] MEDS: METOPROLOL SUCCINATE 50 MG TAB.SR.24H PO SCH (09:04)
[2019-11-17] MEDS: CEPHALEXIN 500 MG CAPSULE PO SCH ×2 (09:04→21:13)
[2019-11-17] MEDS: ENOXAPARIN SODIUM 30 MG/0.3 ML SQ SCH (09:04)
[2019-11-17] MEDS: FUROSEMIDE 20 MG TABLET PO SCH (09:05)
[2019-11-17 11:00] VITALS: BP 129/56
[2019-11-17] MEDS: INSULIN HUMULIN R 100 UNIT/ML 3ML SQ SCH ×3 (11:12→21:00)
[2019-11-17] MEDS ORDERED: GLUCAGON 1MG KIT 1 MG ML IM PRN (11:15)
[2019-11-17] MEDS ORDERED: DEXTROSE 50%-WATER 50 ML DISP.SYRIN IV PRN (11:15)
[2019-11-17 15:00] VITALS: BP 136/48
[2019-11-17] MEDS ORDERED: POLYETHYLENE GLYCOL 3350 17 GM POWD.PACK ONE (16:47)
[2019-11-17] MEDS: POLYETHYLENE GLYCOL 3350 17 GM POWD.PACK PO SCH (16:48)
[2019-11-17 19:10] VITALS: BP 123/48
[2019-11-17] MEDS: CITALOPRAM 20 MG TABLET PO SCH (21:13)
[2019-11-17] MEDS: ARIPIPRAZOLE 5 MG TABLET PO SCH (21:13)
[2019-11-17] MEDS: ATORVASTATIN CALCIUM 20 MG TABLET PO SCH (21:13)
[2019-11-17] MEDS: MONTELUKAST SODIUM 10 MG TAB PO SCH (21:14)
[2019-11-17 23:03] VITALS: BP 113/50
[2019-11-18 03:35] VITALS: BP 117/44
[2019-11-18] MEDS: ACETAMINOPHEN 325 MG TAB PO PRN (04:30)
[2019-11-18] MEDS: INSULIN HUMULIN R 100 UNIT/ML 3ML SQ SCH ×4 (05:27→20:36)
[2019-11-18 05:39] LABS: HEMATOCRIT 28.1 % (36-48); MEAN CORPUSCULAR VOLUME 106.4 fL (79-99); PLATELET COUNT (AUTO) 212 K/uL (130-400); RED BLOOD CELL COUNT(AUTO) 2.64 MIL/uL (4.00-5.50); RED CELL DISTRIBUTION WIDTH 13.3 % (11.0-15.5); WHITE BLOOD COUNT (AUTO) 8.4 K/uL (4.8-10.8)
[2019-11-18 05:46] LABS: CREATININE 4.7 mg/dL (0.5-1.5); POTASSIUM 3.8 mmol/L (3.5-5.1)
[2019-11-18 05:51] LABS: BAND NEUTROPHILS % (MANUAL) 5 % (0-2); EOSINOPHILS % (MANUAL) 7 % (1-6); LYMPHOCYTES % (MANUAL) 32 % (22-44); MAN.DIFF COMMENT-IMPRESSION MANUAL DIFFERENTIAL; MONOCYTES % (MANUAL) 2 % (2-9); PLATELET MORPHOLOGY COMMENT ADEQUATE; SEGMENTED NEUTROPHILS % 54 % (40-70)
[2019-11-18 07:00] VITALS: BP 130/50
[2019-11-18] MEDS: SEVELAMER HCL 800 MG TABLET PO SCH ×3 (08:00→16:34)
[2019-11-18] MEDS: METOPROLOL SUCCINATE 50 MG TAB.SR.24H PO SCH (09:19)
[2019-11-18] MEDS: FAMOTIDINE 20MG TAB 20 MG TAB PO SCH (09:19)
[2019-11-18] MEDS: FUROSEMIDE 20 MG TABLET PO SCH (09:20)
[2019-11-18] MEDS: LISINOPRIL 10 MG TABLET PO SCH (09:20)
[2019-11-18] MEDS: CLOPIDOGREL BISULFATE 75 MG TAB PO SCH (09:20)
[2019-11-18] MEDS: GABAPENTIN 100 MG CAPSULE PO SCH (09:20)
[2019-11-18] MEDS: CEPHALEXIN 500 MG CAPSULE PO SCH ×2 (09:21→21:56)
[2019-11-18] MEDS: ASPIRIN 81MG TAB.CHEW PO SCH (09:21)
[2019-11-18] MEDS: AMLODIPINE BESYLATE 5 MG TAB PO SCH ×2 (09:21→21:00)
[2019-11-18] MEDS: ENOXAPARIN SODIUM 30 MG/0.3 ML SQ SCH (09:22)
[2019-11-18] MEDS: POLYETHYLENE GLYCOL 3350 17 GM POWD.PACK PO SCH (09:29)
[2019-11-18 11:00] VITALS: BP 123/52
[2019-11-18 16:00] VITALS: BP 128/55
[2019-11-18 19:13] VITALS: BP 105/31
--- NOTE | 2019-11-18 19:45 | NUR ---
[facility] F/U CM spoke to Joseline with [facility]. States pt is accepted pending their COVID test. States they should have results tomorrow. CM faxed COVID form. States transportation to has been arranged.
--- NOTE | 2019-11-18 21:00 | NUR ---
PT IS MINIMALLY CONFUSED. CONTINUES TO STATE SHE IS GOING TO [facility] RIGHT NOW, I HAVE REMINDED HER THAT SHE IS PENDING ACCEPTANCE AND SHE WOULD GO POSSIBLY TOMORROW AFTER DIALYSIS. SHE RECALLED THE DATE AND VERBALIZED UNDERSTANDING. NO DISTRESS NOTED.
[2019-11-18] MEDS: MONTELUKAST SODIUM 10 MG TAB PO SCH (21:54)
[2019-11-18] MEDS: ARIPIPRAZOLE 5 MG TABLET PO SCH (21:55)
[2019-11-18] MEDS: CITALOPRAM 20 MG TABLET PO SCH (21:55)
[2019-11-18] MEDS: ATORVASTATIN CALCIUM 20 MG TABLET PO SCH (21:56)
[2019-11-18 23:35] VITALS: BP 107/43
--- NOTE | 2019-11-19 00:10 | NUR ---
PT IS REFUSING NEW IV AT THIS TIME. STATES SHE IS A HARD STICK AND SHE DOES NOT NEED IT FOR [facility]. SIGNED CONSENT,PLACED IN CHART.
[2019-11-19] MEDS: ACETAMINOPHEN 325 MG TAB PO PRN (00:20)
[2019-11-19 03:17] VITALS: BP 115/43
[2019-11-19] MEDS: TRAMADOL HCL 50 MG TABLET PO PRN (03:31)
[2019-11-19 04:42] LABS: HEMATOCRIT 26.3 % (36-48); MEAN CORPUSCULAR HEMOGLOBIN 32.3 pg (27.0-33.0); MEAN CORPUSCULAR HGB CONC 31.6 g/dL (32.0-36.0); MEAN CORPUSCULAR VOLUME 102.3 fL (79-99); PLATELET COUNT (AUTO) 246 K/uL (130-400); RED BLOOD CELL COUNT(AUTO) 2.57 MIL/uL (4.00-5.50); RED CELL DISTRIBUTION WIDTH 13.2 % (11.0-15.5); WHITE BLOOD COUNT (AUTO) 7.2 K/uL (4.8-10.8)
[2019-11-19 04:51] LABS: BASOPHILS % (AUTO) 0.7 % (0.0-5.0); CREATININE 5.5 mg/dL (0.5-1.5); EOSINOPHILS % (AUTO) 7.4 % (0.0-8.0); LYMPHOCYTES % (AUTO) 24.2 % (21.0-51.0); MONOCYTES % (AUTO) 13.4 % (3.0-13.0); NEUTROPHILS % (AUTO) 52.3 % (40.0-77.0); PHOSPHORUS 4.8 mg/dL (2.5-4.9); POTASSIUM 4.1 mmol/L (3.5-5.1)
[2019-11-19] MEDS: INSULIN HUMULIN R 100 UNIT/ML 3ML SQ SCH ×4 (05:36→20:58)
[2019-11-19 08:00] VITALS: BP 108/52
[2019-11-19] MEDS: POLYETHYLENE GLYCOL 3350 17 GM POWD.PACK PO SCH (08:38)
[2019-11-19] MEDS: ASPIRIN 81MG TAB.CHEW PO SCH (08:39)
[2019-11-19] MEDS: SEVELAMER HCL 800 MG TABLET PO SCH ×3 (08:39→17:00)
[2019-11-19] MEDS: GABAPENTIN 100 MG CAPSULE PO SCH (08:40)
[2019-11-19] MEDS: FUROSEMIDE 20 MG TABLET PO SCH (08:40)
[2019-11-19] MEDS: FAMOTIDINE 20MG TAB 20 MG TAB PO SCH (08:40)
[2019-11-19] MEDS: CLOPIDOGREL BISULFATE 75 MG TAB PO SCH (08:41)
[2019-11-19] MEDS: CEPHALEXIN 500 MG CAPSULE PO SCH ×2 (08:41→19:46)
[2019-11-19] MEDS: AMLODIPINE BESYLATE 5 MG TAB PO SCH ×2 (08:42→19:44)
[2019-11-19] MEDS: LISINOPRIL 10 MG TABLET PO SCH (08:42)
[2019-11-19] MEDS: ENOXAPARIN SODIUM 30 MG/0.3 ML SQ SCH (08:43)
[2019-11-19] MEDS: METOPROLOL SUCCINATE 50 MG TAB.SR.24H PO SCH (08:43)
[2019-11-19] MEDS ORDERED: CLOP75TA14 PO (08:45)
--- NOTE | 2019-11-19 08:59 | NUR ---
TELE RECEIVED CALL FROM TELE ADVISING PATIENT HAD BRIEF EPISODES OF ARREST. I WAS IN PATIENT'S ROOM AT THE TIME ADMINISTERING MORNING MEDICATIONS. PATIENT ALERT AND ORIENTED. NOTIFIED RAFAEL GOYAL OF INCIDENT.
[2019-11-19 11:45] VITALS: BP 128/60
--- NOTE | 2019-11-19 14:10 | NUR ---
CM Note: [facility] approval, pending covid result CM spoke to Joseline light/[facility], pt has approval, just pending covid result that was done last week, will call CM or primary nurse Tae once pt clear to transfer. EMS arranged and faxed for today, primary nurse to call [facility] once pt ready to DC. Primary nurse aware. CM to cont to follow up.
[2019-11-19 15:46] VITALS: BP 105/43
[2019-11-19] MEDS ORDERED: DOCUSATE SODIUM 100 MG CAP PO ONE (19:35)
[2019-11-19] MEDS: CITALOPRAM 20 MG TABLET PO SCH (19:44)
[2019-11-19] MEDS: ARIPIPRAZOLE 5 MG TABLET PO SCH (19:44)
[2019-11-19] MEDS: MONTELUKAST SODIUM 10 MG TAB PO SCH (19:45)
[2019-11-19] MEDS: ATORVASTATIN CALCIUM 20 MG TABLET PO SCH (19:45)
[2019-11-19 20:04] VITALS: BP 138/52
--- NOTE | 2019-11-19 22:00 | NUR ---
PT STATES SHE HAS HAD NO BM.COLACE GIVEN. LAST BM WAS NOTED 11/17. ABLE TO TAKE MEDICATIONS.SHE STATES THAT HER FEET HAVE HURTING HER. HEELS NOTED TO BE RED.
[2019-11-20] VITALS (7 sets, daily range): BP systolic 109–160; BP diastolic 39–72
[2019-11-20] MEDS: INSULIN HUMULIN R 100 UNIT/ML 3ML SQ SCH ×4 (06:00→21:00)
[2019-11-20 06:03] LABS: CREATININE 3.9 mg/dL (0.5-1.5)
[2019-11-20 06:19] LABS: HEMATOCRIT 29.5 % (36-48); MEAN CORPUSCULAR HEMOGLOBIN 32.5 pg (27.0-33.0); MEAN CORPUSCULAR HGB CONC 31.9 g/dL (32.0-36.0); MEAN CORPUSCULAR VOLUME 102.1 fL (79-99); RED BLOOD CELL COUNT(AUTO) 2.89 MIL/uL (4.00-5.50); RED CELL DISTRIBUTION WIDTH 12.9 % (11.0-15.5); WHITE BLOOD COUNT (AUTO) 8.3 K/uL (4.8-10.8)
[2019-11-20] MEDS: FUROSEMIDE 20 MG TABLET PO SCH (08:24)
[2019-11-20] MEDS: GABAPENTIN 100 MG CAPSULE PO SCH (08:24)
[2019-11-20] MEDS: FAMOTIDINE 20MG TAB 20 MG TAB PO SCH (08:25)
[2019-11-20] MEDS: CLOPIDOGREL BISULFATE 75 MG TAB PO SCH (08:25)
[2019-11-20] MEDS: CEPHALEXIN 500 MG CAPSULE PO SCH ×2 (08:25→20:24)
[2019-11-20] MEDS: AMLODIPINE BESYLATE 5 MG TAB PO SCH ×2 (08:25→20:23)
[2019-11-20] MEDS: METOPROLOL SUCCINATE 50 MG TAB.SR.24H PO SCH (08:26)
[2019-11-20] MEDS: ASPIRIN 81MG TAB.CHEW PO SCH (08:26)
[2019-11-20] MEDS: LISINOPRIL 10 MG TABLET PO SCH (08:26)
[2019-11-20] MEDS: SEVELAMER HCL 800 MG TABLET PO SCH ×3 (08:27→16:31)
[2019-11-20] MEDS: POLYETHYLENE GLYCOL 3350 17 GM POWD.PACK PO SCH (08:28)
[2019-11-20] MEDS: ENOXAPARIN SODIUM 30 MG/0.3 ML SQ SCH (10:04)
[2019-11-20] MEDS: ACETAMINOPHEN 325 MG TAB PO PRN ×2 (11:07→20:24)
[2019-11-20] MEDS: CIPROFLOXACIN HCL 0.2%/HYDROCORT 1% 10 ML OTIC SUSP OTIC SCH ×3 (13:49→21:30)
[2019-11-20] MEDS: ARIPIPRAZOLE 5 MG TABLET PO SCH (20:23)
[2019-11-20] MEDS: ATORVASTATIN CALCIUM 20 MG TABLET PO SCH (20:23)
[2019-11-20] MEDS: MONTELUKAST SODIUM 10 MG TAB PO SCH (20:24)
[2019-11-20] MEDS: CITALOPRAM 20 MG TABLET PO SCH (20:24)
[2019-11-20] MEDS: TRAMADOL HCL 50 MG TABLET PO PRN (22:55)
[2019-11-21] VITALS: BP 135/58
[2019-11-21 04:00] VITALS: BP 142/50
[2019-11-21 05:03] LABS: BASOPHILS % (AUTO) 0.7 % (0.0-5.0); EOSINOPHILS % (AUTO) 7.8 % (0.0-8.0); HEMATOCRIT 27.5 % (36-48); LYMPHOCYTES % (AUTO) 24.8 % (21.0-51.0); MEAN CORPUSCULAR HEMOGLOBIN 31.4 pg (27.0-33.0); MEAN CORPUSCULAR HGB CONC 31.3 g/dL (32.0-36.0); MEAN CORPUSCULAR VOLUME 100.4 fL (79-99); MONOCYTES % (AUTO) 12.2 % (3.0-13.0); NEUTROPHILS % (AUTO) 52.2 % (40.0-77.0); PLATELET COUNT (AUTO) 297 K/uL (130-400); RED BLOOD CELL COUNT(AUTO) 2.74 MIL/uL (4.00-5.50); RED CELL DISTRIBUTION WIDTH 12.6 % (11.0-15.5); WHITE BLOOD COUNT (AUTO) 8.2 K/uL (4.8-10.8)
[2019-11-21 05:19] LABS: CREATININE 4.7 mg/dL (0.5-1.5); POTASSIUM 3.8 mmol/L (3.5-5.1)
[2019-11-21] MEDS: INSULIN HUMULIN R 100 UNIT/ML 3ML SQ SCH ×3 (05:59→16:30)
[2019-11-21 07:30] VITALS: BP 141/67
--- NOTE | 2019-11-21 07:35 | NUR ---
ASSESSMENT ENCOUNTERED PT A&OX3, CALM COOPERATIVE AND DOES NOT APPEAR TO BE IN ANY DISTRESS NOR ANY NEURO DEFICITS PRESENT. PT DENIES PAIN, SOB, NAUSEA BUT DOES C/O GENERALIZED WEAKNESS AND LOWER EXTREMITY ACHES. PT IS ABLE TO TOLERATE FOODS, FLUIDS AND MEDICATIONS WITH NO THROAT CLEARING OR COUGH. CALL LIGHT WITHIN REACH, PT PENDING DIALYSIS.
[2019-11-21] MEDS: CIPROFLOXACIN HCL 0.2%/HYDROCORT 1% 10 ML OTIC SUSP OTIC SCH ×3 (09:00→17:00)
[2019-11-21] MEDS: AMLODIPINE BESYLATE 5 MG TAB PO SCH (09:00)
[2019-11-21] MEDS: ENOXAPARIN SODIUM 30 MG/0.3 ML SQ SCH (09:00)
[2019-11-21] MEDS: POLYETHYLENE GLYCOL 3350 17 GM POWD.PACK PO SCH (09:00)
[2019-11-21] MEDS: CEPHALEXIN 500 MG CAPSULE PO SCH (09:00)
[2019-11-21] MEDS: LISINOPRIL 10 MG TABLET PO SCH (09:00)
[2019-11-21] MEDS: FAMOTIDINE 20MG TAB 20 MG TAB PO SCH (09:00)
[2019-11-21] MEDS: FUROSEMIDE 20 MG TABLET PO SCH (09:00)
[2019-11-21] MEDS: METOPROLOL SUCCINATE 50 MG TAB.SR.24H PO SCH (09:00)
[2019-11-21] MEDS ORDERED: POLY17PO4 PO (09:26)
[2019-11-21] MEDS ORDERED: CEPH500C2 PO (09:26)
[2019-11-21] MEDS ORDERED: AMLO5TAB4 PO (09:26)
[2019-11-21] MEDS ORDERED: LISI10TA7 PO (09:26)
[2019-11-21] MEDS ORDERED: IPRA3AMP24 IH (09:26)
[2019-11-21] MEDS ORDERED: FAMO20TA8 PO (09:26)
[2019-11-21] MEDS ORDERED: CIPOTIC OTIC (09:26)
--- NOTE | 2019-11-21 10:23 | NUR ---
CM Note: [facility] See CM spoke to patricia Joseph resulted today, pt has acceptance. EMS arranged and faxed, primary nurse to call [facility] once pt ready to DC. Primary nurse aware. CM to cont to follow up.
[2019-11-21 11:00] VITALS: BP 150/50
[2019-11-21] MEDS: SEVELAMER HCL 800 MG TABLET PO SCH ×3 (11:43→17:00)
--- NOTE | 2019-11-21 12:09 | NUR ---
1155 IM Letter and BPCI Letter given to patient. Patient is being Dialyzed at this moment, Elly(dialysis nurse) witnessed forms being given. I faxed IM Letter to [phone] with note;verbal consent,patient being dialyzed. I placed IM Letter in chart under consent tab.
--- NOTE | 2019-11-21 15:32 | NUR ---
RD FOLLOW UP Pt tolerating Renal Dialysis, 75gm CC, Puree diet order with no report of GI distress and Good PO intake at 100%. Pt LBM 11/18/19. Pt is s/p Peripheral bypass. Pending D/C. Recommend continue diet order. RD to continue to monitor. Please notify as additional nutrition concerns arise. Thank you. Addendum: 11/21/19 at [address] Amended: Links added.
[2019-11-21 16:00] VITALS: BP 110/56
[2019-11-21] MEDS: ASPIRIN 81MG TAB.CHEW PO SCH (17:26)
[2019-11-21] MEDS: GABAPENTIN 100 MG CAPSULE PO SCH (17:26)
[2019-11-21] MEDS: CLOPIDOGREL BISULFATE 75 MG TAB PO SCH (17:27)
--- NOTE | 2019-11-21 19:17 | NUR ---
DISCHARGE INSTRUCTIONS GIVEN, REPORT CALLED TO [facility], SPOKE TO YOVANA BOWER PT DISCHARGED VIA EMS.
== END 2019-11-21 18:29 | DRG 252 ==
LOC: EDH 16:00 → EDHIP 20:24 → 4CH 22:45
PROVIDERS: ADMIT Internal Medicine; ATTEND Internal Medicine
PROC: 5A1D70Z Performance of Urinary Filtration, Intermittent, Less than 6 Hours Per Day (ICD-10-PCS; 2019-11-12)
PROC: B41DYZZ Fluoroscopy of Aorta and Bilateral Lower Extremity Arteries using Other Contrast (ICD-10-PCS; 2019-11-13)
PROC: 5A1D70Z Performance of Urinary Filtration, Intermittent, Less than 6 Hours Per Day (ICD-10-PCS; 2019-11-14)
PROC: 041L0JL Bypass Left Femoral Artery to Popliteal Artery with Synthetic Substitute, Open Approach (ICD-10-PCS; principal; 2019-11-14 11:00)
PROC: 5A1D70Z Performance of Urinary Filtration, Intermittent, Less than 6 Hours Per Day (ICD-10-PCS; 2019-11-16)
PROC: 5A1D70Z Performance of Urinary Filtration, Intermittent, Less than 6 Hours Per Day (ICD-10-PCS; 2019-11-16)
PROC: 5A1D70Z Performance of Urinary Filtration, Intermittent, Less than 6 Hours Per Day (ICD-10-PCS; 2019-11-19)
PROC: 5A1D70Z Performance of Urinary Filtration, Intermittent, Less than 6 Hours Per Day (ICD-10-PCS; 2019-11-21)
DX: I73.9 Peripheral vascular disease, unspecified (principal); N18.6 End stage renal disease; I13.2 Hypertensive heart and chronic kidney disease with heart failure and with stage 5 chronic kidney disease, or end stage renal disease; E44.1 Mild protein-calorie malnutrition; I50.32 Chronic diastolic (congestive) heart failure; I69.351 Hemiplegia and hemiparesis following cerebral infarction affecting right dominant side; I70.92 Chronic total occlusion of artery of the extremities; Z99.2 Dependence on renal dialysis; E11.22 Type 2 diabetes mellitus with diabetic chronic kidney disease; F32.9 Major depressive disorder, single episode, unspecified; E78.00 Pure hypercholesterolemia, unspecified; E66.01 Morbid (severe) obesity due to excess calories; E78.5 Hyperlipidemia, unspecified; G47.30 Sleep apnea, unspecified; H66.93 Otitis media, unspecified, bilateral; I25.10 Atherosclerotic heart disease of native coronary artery without angina pectoris; I48.91 Unspecified atrial fibrillation; I95.1 Orthostatic hypotension; I99.8 Other disorder of circulatory system; K59.00 Constipation, unspecified; Z68.35 Body mass index [BMI] 35.0-35.9, adult; Z79.02 Long term (current) use of antithrombotics/antiplatelets; Z79.4 Long term (current) use of insulin; Z79.82 Long term (current) use of aspirin; Z79.899 Other long term (current) drug therapy; Z81.8 Family history of other mental and behavioral disorders; Z96.653 Presence of artificial knee joint, bilateral; D63.1 Anemia in chronic kidney disease; R53.81 Other malaise; Z82.3 Family history of stroke; Z82.49 Family history of ischemic heart disease and other diseases of the circulatory system; Z82.5 Family history of asthma and other chronic lower respiratory diseases; Z83.3 Family history of diabetes mellitus; G90.8 Other disorders of autonomic nervous system; Z20.828 Contact with and (suspected) exposure to other viral communicable diseases
CPT/HCPCS: 36247; 36415; 70450; 75710; 75716; 80048; 80053; 80076; 82550; 82948; 83036; 83735; 84100; 84145; 84443; 84484; 85025; 85027; 85610; 85730; 86850; 86900; 86901; 87486; 87581; 87633; 87798; 90935; 92610; 93005; 93926; 94664; 97039; 99156; 99157; 99291; A4344; C1760; C1769; C1894; G0378; J0330; J0360; J0690; J0885; J1644; J1650; J2001; J2175; J2250; J2370; J2704; J2710; J3010; J3490; J7030; J7040; Q9967

== ENCOUNTER → 2020-02-12 | Outpatient (CLI) | payer MEDICARE ==
[~2020-02-12] MED LIST changes: +AMLO5TAB4 PO; -ATOR20TA65 PO; +CEPH500C2 PO; +CIPOTIC OTIC; +CLOP75TA14 PO; +FAMO20TA8 PO; +IPRA3AMP24 IH; -LEVO500T89 PO; +LIDOCAINE CREAM; +LISI10TA7 PO; +METO-408 PO; -MONT10TA26 PO; +OFLO5DRO21 OT; +POLY17PO4 PO; +TRAM50TA4 PO
== END | disposition home or self-care (01) ==
LOC: RAH 07:39
PROVIDERS: ATTEND Family Medicine
DX: R22.2 Localized swelling, mass and lump, trunk (principal)
CPT/HCPCS: 70540; 71550

== ENCOUNTER 2020-05-02 17:09 | Inpatient (IN) | payer MEDICARE ==
[~2020-05-02] VITALS: Ht 154.9 cm; Wt 78.1 kg
[2020-05-02 17:36] LABS: BASOPHILS % (AUTO) 1.3 % (0.0-5.0); EOSINOPHILS % (AUTO) 6.1 % (0.0-8.0); HEMATOCRIT 32.2 % (36-48); LYMPHOCYTES % (AUTO) 28.6 % (21.0-51.0); MEAN CORPUSCULAR HEMOGLOBIN 32.8 pg (27.0-33.0); MEAN CORPUSCULAR VOLUME 102.5 fL (79-99); MONOCYTES % (AUTO) 11.4 % (3.0-13.0); NEUTROPHILS % (AUTO) 51.5 % (40.0-77.0); PLATELET COUNT (AUTO) 233 K/uL (130-400); RED BLOOD CELL COUNT(AUTO) 3.14 MIL/uL (4.00-5.50); RED CELL DISTRIBUTION WIDTH 14.6 % (11.0-15.5); WHITE BLOOD COUNT (AUTO) 7.6 K/uL (4.8-10.8)
[2020-05-02 17:47] LABS: CREATININE 4.4 mg/dL (0.5-1.5); POTASSIUM 4.3 mmol/L (3.5-5.1)
[2020-05-02 17:49] LABS: INR 0.95 (0.85-1.15); PARTIAL THROMBOPLASTIN TIME 24.9 SEC (26.3-35.5); PROTHROMBIN TIME 10.3 SEC (9.6-11.6)
[2020-05-02 17:53] LABS: ALBUMIN 3.6 g/dL (3.5-5.0); BILIRUBIN,TOTAL 0.2 mg/dL (0.2-1.0); TOTAL PROTEIN, SERUM 7.6 g/dL (6.0-8.3)
[2020-05-02] MEDS ORDERED: DEXTROSE 50%-WATER 50 ML DISP.SYRIN IV PRN (19:00)
[2020-05-02] MEDS ORDERED: NITROGLYCERIN 0.4 MG SL TAB SL PRN (19:00)
[2020-05-02] MEDS ORDERED: GLUCAGON 1MG KIT 1 MG ML IM PRN (19:00)
[2020-05-02] MEDS ORDERED: ACETAMINOPHEN 325 MG TAB PO PRN (19:00)
[2020-05-02] MEDS ORDERED: ONDANSETRON HCL 4 MG/2 ML VIAL IV PRN (19:00)
[2020-05-02] MEDS ORDERED: DIPHENHYDRAMINE HCL 25 MG CAPSULE PO PRN (19:00)
[2020-05-02] MEDS: ASPIRIN 81 MG EC TAB PO SCH (19:00)
[2020-05-02 19:19] LABS: CREATINE KINASE, TOTAL 350 U/L (21-232); MAGNESIUM 2.1 mg/dL (1.80-2.40); MYOGLOBIN 899 ng/mL (10-92); PHOSPHORUS 4.5 mg/dL (2.5-4.9)
[2020-05-02 19:25] LABS: HEMOGLOBIN A1C 5.8 % (4.0-6.0)
[2020-05-02 20:17] LABS: APPEARANCE,URINE Clear (CLEAR); BILIRUBIN,URINE Negative (NEGATIVE); COLOR,URINE Dark Yellow (YELLOW); GLUCOSE, URINE (UA) Negative (NEGATIVE); KETONES,URINE Trace mg/dL (NEGATIVE); LEUKOCYTE ESTERASE ,URINE Small (NEGATIVE); NITRATE,URINE Negative (NEGATIVE); OCCULT BLOOD,URINE Negative (NEGATIVE); PROTEIN,URINE Negative (NEGATIVE); UROBILINOGEN,URINE 0.2 mg/dL (0.2-1.0)
[2020-05-02 20:28] LABS: BACTERIA,URINE Few /HPF (None Seen); RBC,URINE None Seen /HPF (0-1); SQUAMOUS EPITHELIAL CELL,UR None Seen /HPF (0-2); WBC,URINE 0-1 /HPF (0-1)
[2020-05-02] MEDS ORDERED: ALPRAZOLAM 1 MG TAB PO ONE (20:45)
[2020-05-02] MEDS ORDERED: FAMOTIDINE 20MG TAB 20 MG TAB ONE (20:46)
[2020-05-02] MEDS ORDERED: HEPARIN SODIUM 5000UNIT/ML 1ML VIAL ONE (20:47)
[2020-05-02] MEDS ORDERED: IPRATROPIUM/ALBUTEROL SULFATE 3 ML SOLUTION IH PRN (21:00)
[2020-05-02] MEDS: INSULIN HUMULIN R 100 UNIT/ML 3ML SQ SCH (21:00)
[2020-05-02] MEDS: HEPARIN SODIUM 5000UNIT/ML 1ML VIAL SQ SCH (21:00)
[2020-05-02 22:50] VITALS: BP 134/46
[2020-05-03 04:00] VITALS: BP 157/56
[2020-05-03 06:12] LABS: HEMATOCRIT 32.2 % (36-48); MEAN CORPUSCULAR HGB CONC 31.7 g/dL (32.0-36.0); MEAN CORPUSCULAR VOLUME 100.9 fL (79-99); PLATELET COUNT (AUTO) 232 K/uL (130-400); RED BLOOD CELL COUNT(AUTO) 3.19 MIL/uL (4.00-5.50); RED CELL DISTRIBUTION WIDTH 14.3 % (11.0-15.5)
[2020-05-03] MEDS: INSULIN HUMULIN R 100 UNIT/ML 3ML SQ SCH ×4 (06:30→20:06)
[2020-05-03 06:47] LABS: ALANINE AMINOTRANSFERASE 20 U/L (12-78); ALBUMIN 3.4 g/dL (3.5-5.0); ASPARTATE AMINOTRANSFERASE 30 U/L (10-37); BILIRUBIN,TOTAL 0.3 mg/dL (0.2-1.0); CARBON DIOXIDE 25 mmol/L (21-32); CHLORIDE 100 mmol/L (101-111); CHOLESTEROL 132 mg/dL (<200); CREATINE KINASE, TOTAL 228 U/L (21-232); CREATININE 4.9 mg/dL (0.5-1.5); GLOMERULAR FILTR. RATE CALC 9 mL/min (>60); GLUCOSE,RANDOM 85 mg/dL (70-105); HDL CHOLESTEROL 59 mg/dL (35-85); LDL DIRECT 54 mg/dL (0-99); MYOGLOBIN 556 ng/mL (10-92); PHOSPHORUS 4.9 mg/dL (2.5-4.9); POTASSIUM 4.7 mmol/L (3.5-5.1); SODIUM SERUM 136 mmol/L (136-145); TOTAL PROTEIN, SERUM 7.1 g/dL (6.0-8.3); TRIGLYCERIDES 88 mg/dL (30-200); TROPONIN I < 0.04 ng/mL (0.00-0.06); UREA NITROGEN, BLOOD 56 mg/dL (7-18)
[2020-05-03 08:00] VITALS: BP 164/57
[2020-05-03 08:03] LABS: EOSINOPHILS % (MANUAL) 8 % (1-6); LYMPHOCYTES % (MANUAL) 28 % (22-44); MONOCYTES % (MANUAL) 5 % (2-9); REACTIVE LYMPHOCYTES 1 % (0-0); SEGMENTED NEUTROPHILS % 58 % (40-70)
[2020-05-03 08:04] LABS: PLATELET MORPHOLOGY COMMENT ADEQUATE
[2020-05-03] MEDS: FAMOTIDINE 20MG TAB 20 MG TAB PO SCH (08:39)
[2020-05-03] MEDS: ASPIRIN 81 MG EC TAB PO SCH (08:45)
[2020-05-03] MEDS: HEPARIN SODIUM 5000UNIT/ML 1ML VIAL SQ SCH ×2 (08:53→19:56)
[2020-05-03] MEDS ORDERED: METOPROLOL SUCCINATE 50 MG TAB.SR.24H PO SCH (09:00)
[2020-05-03 11:00] VITALS: BP 128/73
[2020-05-03 12:29] LABS: CREATINE KINASE, TOTAL 191 U/L (21-232); MYOGLOBIN 477 ng/mL (10-92); TROPONIN I < 0.04 ng/mL (0.00-0.06)
[2020-05-03 16:00] VITALS: BP 166/95
[2020-05-03] MEDS ORDERED: IPRATROPIUM/ALBUTEROL SULFATE 3 ML SOLUTION IH PRN (16:15)
[2020-05-03] MEDS: BENZONATATE 100 MG CAPSULE PO PRN (17:06)
[2020-05-03 19:45] VITALS: BP 188/75
--- NOTE | 2020-05-03 19:46 | NUR ---
nora note met with patient and states resides athome with daughter, pt uses 1 crutch to ambulate and a walker a times. has 3hrs daily provider, daughter transports to [place] and dialyssis.pt goes to [facility] . no dc needs. dcplan is back to home at dc. Addendum: 05/03/20 at 1949 by NIK MARTIN CM Amended: Links added.
[2020-05-03] MEDS: AMLODIPINE BESYLATE 5 MG TAB PO SCH (19:54)
[2020-05-03] MEDS: ZOLPIDEM TARTRATE 5 MG TAB PO SCH ×3 (19:57→21:15)
[2020-05-03 23:56] VITALS: BP 159/55
[2020-05-04] MEDS: BENZONATATE 100 MG CAPSULE PO PRN ×2 (01:45→18:22)
[2020-05-04 04:00] VITALS: BP 156/66
[2020-05-04] MEDS: INSULIN HUMULIN R 100 UNIT/ML 3ML SQ SCH ×4 (05:54→22:32)
[2020-05-04 06:05] LABS: BASOPHILS % (AUTO) 0.9 % (0.0-5.0); EOSINOPHILS % (AUTO) 6.9 % (0.0-8.0); LYMPHOCYTES % (AUTO) 22.3 % (21.0-51.0); MEAN CORPUSCULAR HEMOGLOBIN 32.6 pg (27.0-33.0); MEAN CORPUSCULAR HGB CONC 32.3 g/dL (32.0-36.0); MONOCYTES % (AUTO) 10.4 % (3.0-13.0); NEUTROPHILS % (AUTO) 58.8 % (40.0-77.0); PLATELET COUNT (AUTO) 260 K/uL (130-400); RED BLOOD CELL COUNT(AUTO) 3.07 MIL/uL (4.00-5.50); RED CELL DISTRIBUTION WIDTH 14.2 % (11.0-15.5); WHITE BLOOD COUNT (AUTO) 7.4 K/uL (4.8-10.8)
[2020-05-04 06:21] LABS: ALBUMIN 3.3 g/dL (3.5-5.0); BILIRUBIN,TOTAL 0.4 mg/dL (0.2-1.0); CREATININE 5.3 mg/dL (0.5-1.5); POTASSIUM 4.9 mmol/L (3.5-5.1); TOTAL PROTEIN, SERUM 6.9 g/dL (6.0-8.3)
[2020-05-04 07:59] VITALS: BP 161/74
[2020-05-04] MEDS ORDERED: METOPROLOL SUCCINATE 50 MG TAB.SR.24H PO SCH (09:00)
[2020-05-04] MEDS: ASPIRIN 81 MG EC TAB PO SCH (10:24)
[2020-05-04] MEDS: FAMOTIDINE 20MG TAB 20 MG TAB PO SCH (10:24)
[2020-05-04] MEDS: AMLODIPINE BESYLATE 5 MG TAB PO SCH ×2 (10:24→20:27)
[2020-05-04] MEDS: HEPARIN SODIUM 5000UNIT/ML 1ML VIAL SQ SCH ×2 (10:26→20:30)
[2020-05-04 11:20] VITALS: BP 158/64
[2020-05-04] MEDS ORDERED: REGADENOSON 0.4 MG/5 ML PF SYG IVP SCH (14:00)
[2020-05-04 16:33] VITALS: BP 163/79
[2020-05-04 20:10] VITALS: BP 166/64
[2020-05-04] MEDS: ZOLPIDEM TARTRATE 5 MG TAB PO SCH (21:55)
[2020-05-04 23:58] VITALS: BP 134/62
[2020-05-05 04:18] VITALS: BP 161/73
[2020-05-05] MEDS: INSULIN HUMULIN R 100 UNIT/ML 3ML SQ SCH ×4 (05:21→21:00)
--- NOTE | 2020-05-05 05:28 | NUR ---
TELEMETRY REPORTS -2.0 FOLLOWED BY A 3.5 SECOND PAUSE. WALKED IN TO PATIENT'S ROOM, PATIENT IN BED IN SITTING POSITION WATCHING T.V. DENIES CHEST PAIN, PALPITATIONS OR FEELING HEART "SKIP A BEAT," OR ANY OTHER DISCOMFORT. WILL CONTINUE TO MONITOR.
[2020-05-05 05:40] LABS: BASOPHILS % (AUTO) 0.9 % (0.0-5.0); EOSINOPHILS % (AUTO) 5.8 % (0.0-8.0); HEMATOCRIT 29.6 % (36-48); LYMPHOCYTES % (AUTO) 20.7 % (21.0-51.0); MEAN CORPUSCULAR HEMOGLOBIN 33.6 pg (27.0-33.0); MEAN CORPUSCULAR HGB CONC 33.1 g/dL (32.0-36.0); MEAN CORPUSCULAR VOLUME 101.4 fL (79-99); MONOCYTES % (AUTO) 9.5 % (3.0-13.0); NEUTROPHILS % (AUTO) 62.8 % (40.0-77.0); PLATELET COUNT (AUTO) 278 K/uL (130-400); RED BLOOD CELL COUNT(AUTO) 2.92 MIL/uL (4.00-5.50); RED CELL DISTRIBUTION WIDTH 13.9 % (11.0-15.5); WHITE BLOOD COUNT (AUTO) 8.7 K/uL (4.8-10.8)
[2020-05-05 05:57] LABS: ALBUMIN 3.3 g/dL (3.5-5.0); BILIRUBIN,TOTAL 0.4 mg/dL (0.2-1.0); CREATININE 5.6 mg/dL (0.5-1.5); POTASSIUM 5.1 mmol/L (3.5-5.1)
[2020-05-05 08:37] VITALS: BP 167/54
[2020-05-05] MEDS: BENZONATATE 100 MG CAPSULE PO PRN ×2 (08:58→18:35)
[2020-05-05] MEDS: METOPROLOL SUCCINATE 50 MG TAB.SR.24H PO SCH (08:59)
[2020-05-05] MEDS: ASPIRIN 81 MG EC TAB PO SCH (08:59)
[2020-05-05] MEDS: FAMOTIDINE 20MG TAB 20 MG TAB PO SCH (08:59)
[2020-05-05] MEDS: AMLODIPINE BESYLATE 5 MG TAB PO SCH ×2 (08:59→20:58)
[2020-05-05] MEDS: HEPARIN SODIUM 5000UNIT/ML 1ML VIAL SQ SCH ×2 (09:00→21:01)
[2020-05-05 12:00] LABS: MAGNESIUM 2.1 mg/dL (1.80-2.40)
[2020-05-05 13:42] VITALS: BP 167/75
[2020-05-05] MEDS: ACETAMINOPHEN 325 MG TAB PO PRN ×2 (14:03→18:35)
--- NOTE | 2020-05-05 14:42 | NUR ---
Primary nurse Priscilla had previously reported 2 and 3 second pauses that occurred over night to Dr. Bull. Orders rec'd for mg and phos. Reported current results of mg 2.[address] Bull. Inquired if cardiology consult as needed, per MD, not necessary at present.
[2020-05-05 16:21] VITALS: BP 149/53
[2020-05-05 19:30] VITALS: BP 118/49
[2020-05-05] MEDS: ZOLPIDEM TARTRATE 5 MG TAB PO SCH (20:57)
[2020-05-06] VITALS: BP 163/47
[2020-05-06] MEDS: BENZONATATE 100 MG CAPSULE PO PRN ×2 (03:23→09:33)
[2020-05-06 04:00] VITALS: BP 141/45
[2020-05-06 04:01] LABS: BASOPHILS % (AUTO) 0.9 % (0.0-5.0); EOSINOPHILS % (AUTO) 6.6 % (0.0-8.0); HEMATOCRIT 29.1 % (36-48); MEAN CORPUSCULAR HEMOGLOBIN 33.1 pg (27.0-33.0); MEAN CORPUSCULAR HGB CONC 32.6 g/dL (32.0-36.0); MEAN CORPUSCULAR VOLUME 101.4 fL (79-99); MONOCYTES % (AUTO) 12.4 % (3.0-13.0); NEUTROPHILS % (AUTO) 53.5 % (40.0-77.0); PLATELET COUNT (AUTO) 248 K/uL (130-400); RED BLOOD CELL COUNT(AUTO) 2.87 MIL/uL (4.00-5.50); RED CELL DISTRIBUTION WIDTH 13.8 % (11.0-15.5); WHITE BLOOD COUNT (AUTO) 6.6 K/uL (4.8-10.8)
[2020-05-06 04:21] LABS: ALBUMIN 3.3 g/dL (3.5-5.0); BILIRUBIN,TOTAL 0.4 mg/dL (0.2-1.0); CREATININE 4.4 mg/dL (0.5-1.5); POTASSIUM 4.2 mmol/L (3.5-5.1); TOTAL PROTEIN, SERUM 6.9 g/dL (6.0-8.3)
[2020-05-06] MEDS: ACETAMINOPHEN 325 MG TAB PO PRN (09:33)
[2020-05-06] MEDS: AMLODIPINE BESYLATE 5 MG TAB PO SCH (09:33)
[2020-05-06] MEDS: ASPIRIN 81 MG EC TAB PO SCH (09:33)
[2020-05-06] MEDS: FAMOTIDINE 20MG TAB 20 MG TAB PO SCH (09:33)
[2020-05-06] MEDS: METOPROLOL SUCCINATE 50 MG TAB.SR.24H PO SCH (09:33)
[2020-05-06] MEDS: HEPARIN SODIUM 5000UNIT/ML 1ML VIAL SQ SCH (09:37)
[2020-05-06] MEDS: INSULIN HUMULIN R 100 UNIT/ML 3ML SQ SCH ×3 (09:49→16:30)
[2020-05-06 10:16] VITALS: BP 158/47
[2020-05-06 12:18] VITALS: BP 133/44
--- NOTE | 2020-05-06 18:01 | NUR ---
DISCHARGE PATIENT GIVEN DISCHARGE INSTRUCTIONS VIA TEACH BACK. 20G RAC DISCONTINUED, TIP INTACT. PATIENT TO FOLOW UP WITH DR. AZEB SMITH, DR. ROBLEDO AND DR. PAIGE. NO RX GIVEN, PATIENT STABLE AT THIS TIME. PATIENT WHEELED TO [facility] BY ANDRY WOODARD FOR DISCHARGE.
[2020-05-07] MEDS ORDERED: METOPROLOL SUCCINATE 50 MG TAB.SR.24H PO SCH (09:00)
== END 2020-05-06 18:00 | disposition home or self-care (01) | DRG 391 ==
LOC: EDH 17:09 → UNDOADMOB 18:45 → INTOOBSV 18:45 → EDHIP 18:45 → OBSVTOIN 18:45 → 3AH 22:03 → EDHIP 22:03 → UNDODISIN 05-06 18:00
PROVIDERS: ADMIT Family Medicine; ATTEND Family Medicine
PROC: 5A1D70Z Performance of Urinary Filtration, Intermittent, Less than 6 Hours Per Day (ICD-10-PCS; principal; 2020-05-05)
DX: K21.9 Gastro-esophageal reflux disease without esophagitis (principal); N18.6 End stage renal disease; I13.2 Hypertensive heart and chronic kidney disease with heart failure and with stage 5 chronic kidney disease, or end stage renal disease; I50.32 Chronic diastolic (congestive) heart failure; I69.351 Hemiplegia and hemiparesis following cerebral infarction affecting right dominant side; R06.02 Shortness of breath; E87.70 Fluid overload, unspecified; F32.9 Major depressive disorder, single episode, unspecified; E11.22 Type 2 diabetes mellitus with diabetic chronic kidney disease; E78.5 Hyperlipidemia, unspecified; D63.1 Anemia in chronic kidney disease; Z96.653 Presence of artificial knee joint, bilateral; Z66 Do not resuscitate; Z20.828 Contact with and (suspected) exposure to other viral communicable diseases; E11.51 Type 2 diabetes mellitus with diabetic peripheral angiopathy without gangrene; E11.40 Type 2 diabetes mellitus with diabetic neuropathy, unspecified; Z79.82 Long term (current) use of aspirin; Z99.2 Dependence on renal dialysis; Z91.15 Patient's noncompliance with renal dialysis; Z83.3 Family history of diabetes mellitus; Z82.3 Family history of stroke; Z82.5 Family history of asthma and other chronic lower respiratory diseases; Z82.49 Family history of ischemic heart disease and other diseases of the circulatory system
CPT/HCPCS: 36415; 71045; 78452; 80053; 80061; 81001; 82550; 82948; 83036; 83735; 83874; 84100; 84484; 85025; 85610; 85730; 87088; 87426; 90935; 93005; 93017; 93306; 93356; 96374; A9500; G0378; J1644; J1815; J2785; U0003

== ENCOUNTER 2020-07-22 07:42 | Inpatient (IN) | payer MEDICARE ==
[~2020-07-22] VITALS: Ht 154.9 cm; Wt 76.7 kg
[~2020-07-22 07:42] MED LIST changes: -ARIP10TA16 PO; +ARIP10TA54 PO; -CEPH500C2 PO; +LISI10TA24 PO; -LISI10TA7 PO; -PIND10TA2 PO; -TRAM50TA4 PO
[2020-07-22 08:12] LABS: BASOPHILS % (AUTO) 0.5 % (0.0-5.0); EOSINOPHILS % (AUTO) 0.7 % (0.0-8.0); HEMATOCRIT 39.9 % (36-48); LYMPHOCYTES % (AUTO) 11.6 % (21.0-51.0); MEAN CORPUSCULAR HEMOGLOBIN 33.1 pg (27.0-33.0); MEAN CORPUSCULAR HGB CONC 32.6 g/dL (32.0-36.0); MEAN CORPUSCULAR VOLUME 101.5 fL (79-99); MONOCYTES % (AUTO) 6.6 % (3.0-13.0); NEUTROPHILS % (AUTO) 79.3 % (40.0-77.0); PLATELET COUNT (AUTO) 197 K/uL (130-400); RED BLOOD CELL COUNT(AUTO) 3.93 MIL/uL (4.00-5.50); WHITE BLOOD COUNT (AUTO) 6.1 K/uL (4.8-10.8)
[2020-07-22 08:22] LABS: INR 1.03 (0.85-1.15); PROTHROMBIN TIME 11.2 SEC (9.6-11.6)
[2020-07-22 08:23] LABS: PARTIAL THROMBOPLASTIN TIME 31.9 SEC (26.3-35.5)
[2020-07-22 08:33] LABS: ALBUMIN 2.8 g/dL (3.5-5.0); BILIRUBIN,TOTAL 0.3 mg/dL (0.2-1.0); CREATININE 3.2 mg/dL (0.5-1.5); POTASSIUM 3.9 mmol/L (3.5-5.1); TOTAL PROTEIN, SERUM 7.1 g/dL (6.0-8.3); TROPONIN I 0.04 ng/mL (0.00-0.06)
[2020-07-22] MEDS ORDERED: ENOXAPARIN SODIUM 80 MG/0.8 ML SQ ONE (11:38)
[2020-07-22] MEDS ORDERED: AZITHROMYCIN 500MG+NS 250ML 250 ML IV ONE (11:39)
[2020-07-22] MEDS ORDERED: ACETAMINOPHEN 325 MG TAB ONE (11:39)
[2020-07-22] MEDS ORDERED: DEXAMETHASONE SOD PHOSPHATE 10MG/ML 1ML VIAL ONE (11:39)
[2020-07-22 12:34] LABS: CRP QUANTITATIVE 104.4 mg/L (0.00-9.0)
[2020-07-22] MEDS: AZITHROMYCIN 500MG+NS 250ML 250 ML IV SCH (14:15)
[2020-07-22] MEDS ORDERED: ONDANSETRON 4MG INJ IV PRN (14:15)
[2020-07-22] MEDS ORDERED: ACETAMINOPHEN 325 MG TAB PO PRN (14:15)
[2020-07-22] MEDS: DOXYCYCLINE 100MG+NS 250ML IV SCH (14:15)
[2020-07-22] MEDS ORDERED: ERGOCALCIFEROL (VITAMIN D2) 50,000 UNIT CAPSULE PO ONE (14:15)
[2020-07-22] MEDS: CEFTRIAXONE 1G VIAL IVP SCH (14:15)
[2020-07-22] MEDS: DEXAMETHASONE SOD PHOSPHATE 4 MG/ML 1ML VIAL IVP SCH (14:15)
[2020-07-22] MEDS ORDERED: CEFTRIAXONE 1G VIAL ONE (14:41)
[2020-07-22] MEDS ORDERED: DOXYCYCLINE 100MG+NS 250ML 250 ML IV ONE (14:41)
[2020-07-22] MEDS ORDERED: ERGOCALCIFEROL (VITAMIN D2) 50,000 UNIT CAPSULE ONE (14:41)
[2020-07-22] MEDS: HEPARIN 5,000 UNIT VIAL SQ SCH (17:45)
[2020-07-22 18:27] LABS: HEMOGLOBIN A1C 5.6 % (4.0-6.0)
[2020-07-22] MEDS: AMLODIPINE 5 MG TAB PO SCH (21:00)
[2020-07-22] MEDS: FAMOTIDINE 20MG VIAL IV SCH (21:00)
[2020-07-22] MEDS: INSULIN HUMULIN R 100 UNIT/ML 3ML SQ SCH (21:00)
[2020-07-22 22:55] VITALS: BP 153/74
[2020-07-23 04:00] VITALS: BP 171/66
[2020-07-23] MEDS ORDERED: 0.9% NACL 250ML 250 ML IV ONE (04:20)
[2020-07-23 04:33] LABS: BASOPHILS % (AUTO) 0.6 % (0.0-5.0); HEMATOCRIT 39.5 % (36-48); LYMPHOCYTES % (AUTO) 23.4 % (21.0-51.0); MEAN CORPUSCULAR HEMOGLOBIN 33.5 pg (27.0-33.0); MEAN CORPUSCULAR HGB CONC 32.9 g/dL (32.0-36.0); MEAN CORPUSCULAR VOLUME 101.8 fL (79-99); MONOCYTES % (AUTO) 7.9 % (3.0-13.0); NEUTROPHILS % (AUTO) 65.8 % (40.0-77.0); PLATELET COUNT (AUTO) 248 K/uL (130-400); RED BLOOD CELL COUNT(AUTO) 3.88 MIL/uL (4.00-5.50); RED CELL DISTRIBUTION WIDTH 12.2 % (11.0-15.5); WHITE BLOOD COUNT (AUTO) 3.6 K/uL (4.8-10.8)
[2020-07-23 04:51] LABS: ALBUMIN 2.8 g/dL (3.5-5.0); BILIRUBIN,TOTAL 0.2 mg/dL (0.2-1.0); CREATININE 3.7 mg/dL (0.5-1.5); POTASSIUM 3.7 mmol/L (3.5-5.1); TOTAL PROTEIN, SERUM 7.3 g/dL (6.0-8.3)
[2020-07-23] MEDS: CEFTRIAXONE 1G VIAL IVP SCH ×2 (04:56→17:58)
[2020-07-23] MEDS: DOXYCYCLINE 100MG+NS 250ML IV SCH ×2 (04:56→17:57)
[2020-07-23] MEDS: HEPARIN 5,000 UNIT VIAL SQ SCH ×2 (05:17→18:23)
[2020-07-23] MEDS: INSULIN HUMULIN R 100 UNIT/ML 3ML SQ SCH ×4 (06:54→21:00)
[2020-07-23 08:00] VITALS: BP 147/59
[2020-07-23] MEDS ORDERED: NON-FORMULARY MEDICATION 1 EACH (Metoprolol Succinate 25 MG) PO SCH (09:00)
[2020-07-23] MEDS: AMLODIPINE 5 MG TAB PO SCH ×2 (09:05→20:07)
[2020-07-23] MEDS: ASCORBIC ACID 500 MG TAB PO SCH (09:05)
[2020-07-23] MEDS: ZINC SULFATE 220 CAPSULE PO SCH (09:05)
[2020-07-23] MEDS: METOPROLOL SUCCINATE 50 MG TAB.SR.24H PO SCH (09:06)
[2020-07-23 12:00] VITALS: BP 152/58
[2020-07-23] MEDS ORDERED: ALPR1TAB2 PO (12:21)
[2020-07-23 16:00] VITALS: BP 175/95
[2020-07-23] MEDS: ACETAMINOPHEN 325 MG TAB PO PRN (16:58)
[2020-07-23] MEDS: AZITHROMYCIN 500MG+NS 250ML 250 ML IV SCH (17:57)
[2020-07-23] MEDS: DEXAMETHASONE SOD PHOSPHATE 4 MG/ML 1ML VIAL IVP SCH (17:58)
[2020-07-23] MEDS: Vitamin B Complex/Vit C/Folic Acid PO SCH (18:21)
[2020-07-23 20:00] VITALS: BP 143/63
[2020-07-23] MEDS: ALPRAZOLAM 1 MG TAB PO SCH (20:07)
[2020-07-23] MEDS: FAMOTIDINE 20MG VIAL IV SCH (20:07)
[2020-07-23] MEDS ORDERED: GUAIFENESIN-CODEINE 5 ML SYRUP PO PRN (20:30)
[2020-07-23 23:58] VITALS: BP 151/70
[2020-07-24 01:52] LABS: APPEARANCE,URINE Cloudy (CLEAR); BILIRUBIN,URINE Negative (NEGATIVE); COLOR,URINE Yellow (YELLOW); GLUCOSE, URINE (UA) Negative (NEGATIVE); KETONES,URINE Trace mg/dL (NEGATIVE); LEUKOCYTE ESTERASE ,URINE Large (NEGATIVE); NITRATE,URINE Negative (NEGATIVE); OCCULT BLOOD,URINE Trace (NEGATIVE); PROTEIN,URINE 300 mg/dL (NEGATIVE); UROBILINOGEN,URINE 0.2 mg/dL (0.2-1.0)
[2020-07-24 02:02] LABS: BACTERIA,URINE Moderate /HPF (None Seen); RBC,URINE 0-1 /HPF (0-1); WBC,URINE >100 /HPF (0-1)
[2020-07-24 04:00] VITALS: BP 156/67
[2020-07-24] MEDS: INSULIN HUMULIN R 100 UNIT/ML 3ML SQ SCH ×4 (05:42→21:07)
[2020-07-24] MEDS: CEFTRIAXONE 1G VIAL IVP SCH ×2 (05:54→15:31)
[2020-07-24] MEDS: DOXYCYCLINE 100MG+NS 250ML IV SCH ×2 (05:54→15:31)
[2020-07-24] MEDS: HEPARIN 5,000 UNIT VIAL SQ SCH ×2 (05:56→17:45)
[2020-07-24 06:08] LABS: BASOPHILS % (AUTO) 0.3 % (0.0-5.0); HEMATOCRIT 39.1 % (36-48); MEAN CORPUSCULAR HEMOGLOBIN 32.7 pg (27.0-33.0); MEAN CORPUSCULAR HGB CONC 33.2 g/dL (32.0-36.0); MEAN CORPUSCULAR VOLUME 98.2 fL (79-99); MONOCYTES % (AUTO) 4.9 % (3.0-13.0); PLATELET COUNT (AUTO) 287 K/uL (130-400); RED BLOOD CELL COUNT(AUTO) 3.98 MIL/uL (4.00-5.50); RED CELL DISTRIBUTION WIDTH 11.9 % (11.0-15.5); WHITE BLOOD COUNT (AUTO) 6.1 K/uL (4.8-10.8)
[2020-07-24 06:30] LABS: BILIRUBIN,TOTAL 0.3 mg/dL (0.2-1.0); CREATININE 3.3 mg/dL (0.5-1.5); CRP QUANTITATIVE 91.5 mg/L (0.00-9.0); POTASSIUM 3.6 mmol/L (3.5-5.1); TOTAL PROTEIN, SERUM 7.5 g/dL (6.0-8.3)
[2020-07-24] MEDS: AMLODIPINE 5 MG TAB PO SCH ×2 (08:51→20:56)
[2020-07-24] MEDS: Vitamin B Complex/Vit C/Folic Acid PO SCH (08:51)
[2020-07-24] MEDS: METOPROLOL SUCCINATE 50 MG TAB.SR.24H PO SCH (08:52)
[2020-07-24] MEDS: ASCORBIC ACID 500 MG TAB PO SCH (08:53)
[2020-07-24] MEDS: ACETAMINOPHEN 325 MG TAB PO PRN (08:53)
[2020-07-24] MEDS: ZINC SULFATE 220 CAPSULE PO SCH (08:53)
[2020-07-24] MEDS: ALPRAZOLAM 1 MG TAB PO SCH ×2 (08:54→20:56)
[2020-07-24] MEDS: DEXAMETHASONE 4 MG TAB PO SCH (08:55)
[2020-07-24 09:05] VITALS: BP 169/67
[2020-07-24 12:13] VITALS: BP 185/80
[2020-07-24 14:13] LABS: BASOPHILS % (AUTO) 0.6 % (0.0-5.0); HEMATOCRIT 43.5 % (36-48); MEAN CORPUSCULAR HEMOGLOBIN 33.2 pg (27.0-33.0); MEAN CORPUSCULAR HGB CONC 32.9 g/dL (32.0-36.0); MEAN CORPUSCULAR VOLUME 100.9 fL (79-99); MONOCYTES % (AUTO) 6.7 % (3.0-13.0); NEUTROPHILS % (AUTO) 80.4 % (40.0-77.0); PLATELET COUNT (AUTO) 239 K/uL (130-400); RED BLOOD CELL COUNT(AUTO) 4.31 MIL/uL (4.00-5.50); RED CELL DISTRIBUTION WIDTH 12.3 % (11.0-15.5); WHITE BLOOD COUNT (AUTO) 6.9 K/uL (4.8-10.8)
[2020-07-24] MEDS: AZITHROMYCIN 500MG+NS 250ML 250 ML IV SCH (15:31)
[2020-07-24 18:46] VITALS: BP 179/79
[2020-07-24 19:00] VITALS: BP 149/61
[2020-07-24] MEDS: FAMOTIDINE 20MG VIAL IV SCH ×2 (20:56→21:00)
[2020-07-25] VITALS: BP 155/70
[2020-07-25 04:00] VITALS: BP 137/59
[2020-07-25] MEDS: HEPARIN 5,000 UNIT VIAL SQ SCH ×2 (05:45→18:33)
[2020-07-25 05:56] LABS: BASOPHILS % (AUTO) 0.3 % (0.0-5.0); EOSINOPHILS % (AUTO) 0.2 % (0.0-8.0); HEMATOCRIT 41.2 % (36-48); LYMPHOCYTES % (AUTO) 10.1 % (21.0-51.0); MEAN CORPUSCULAR HEMOGLOBIN 32.3 pg (27.0-33.0); MEAN CORPUSCULAR HGB CONC 32.5 g/dL (32.0-36.0); MEAN CORPUSCULAR VOLUME 99.3 fL (79-99); MONOCYTES % (AUTO) 7.6 % (3.0-13.0); NEUTROPHILS % (AUTO) 80.1 % (40.0-77.0); NUCLEATED RED BLOOD CELLS 0.3 % (0.0-0.19); PLATELET COUNT (AUTO) 95 K/uL (130-400); RED BLOOD CELL COUNT(AUTO) 4.15 MIL/uL (4.00-5.50); RED CELL DISTRIBUTION WIDTH 12.4 % (11.0-15.5)
[2020-07-25 06:21] LABS: BILIRUBIN,TOTAL 0.4 mg/dL (0.2-1.0); CREATININE 3.8 mg/dL (0.5-1.5); CRP QUANTITATIVE 57.1 mg/L (0.00-9.0); PHOSPHORUS 3.5 mg/dL (2.5-4.9); POTASSIUM 4.1 mmol/L (3.5-5.1); TOTAL PROTEIN, SERUM 7.7 g/dL (6.0-8.3)
[2020-07-25] MEDS: INSULIN HUMULIN R 100 UNIT/ML 3ML SQ SCH ×4 (06:50→20:57)
[2020-07-25 08:00] VITALS: BP 188/79
[2020-07-25 08:14] LABS: HEPATITIS A ANTIBODY IGM Negative (Negative); HEPATITIS B CORE IGM Negative (Negative); HEPATITIS Bs ANTIGEN SCREEN P Negative (Negative)
[2020-07-25 09:18] LABS: THYROID STIMULATING HORMONE 0.21 uIU/mL (0.36-3.74)
[2020-07-25] MEDS: AZITHROMYCIN 250 MG TABLET PO SCH (09:22)
[2020-07-25] MEDS: Vitamin B Complex/Vit C/Folic Acid PO SCH (09:22)
[2020-07-25] MEDS: DEXAMETHASONE 4 MG TAB PO SCH (09:23)
[2020-07-25] MEDS: ALPRAZOLAM 1 MG TAB PO SCH (09:23)
[2020-07-25] MEDS: AMLODIPINE 5 MG TAB PO SCH ×2 (09:23→20:07)
[2020-07-25] MEDS: ASCORBIC ACID 500 MG TAB PO SCH (09:23)
[2020-07-25] MEDS: METOPROLOL SUCCINATE 50 MG TAB.SR.24H PO SCH (09:24)
[2020-07-25] MEDS: ZINC SULFATE 220 CAPSULE PO SCH (09:24)
[2020-07-25] MEDS: CEPHALEXIN 500 MG CAPSULE PO SCH ×2 (09:25→20:07)
[2020-07-25] MEDS ORDERED: CLIN-141 PO (11:16)
[2020-07-25 14:40] VITALS: BP 193/79
[2020-07-25 16:00] VITALS: BP 165/52
[2020-07-25 19:00] VITALS: BP 125/57
[2020-07-25] MEDS: FAMOTIDINE 20MG VIAL IV SCH (20:07)
[2020-07-25] MEDS: ACETAMINOPHEN 325 MG TAB PO PRN (22:05)
[2020-07-26] VITALS: BP 160/70
[2020-07-26 04:00] VITALS: BP 162/70
[2020-07-26] MEDS: HEPARIN 5,000 UNIT VIAL SQ SCH (05:21)
[2020-07-26 06:09] LABS: CARBON DIOXIDE 24 mmol/L (21-32); CHLORIDE 98 mmol/L (101-111); CREATININE 3.2 mg/dL (0.5-1.5); GLOMERULAR FILTR. RATE CALC 15 mL/min (>60); PHOSPHORUS 3.7 mg/dL (2.5-4.9); POTASSIUM 4.4 mmol/L (3.5-5.1); SODIUM SERUM 134 mmol/L (136-145); UREA NITROGEN, BLOOD 36 mg/dL (7-18)
[2020-07-26 06:20] LABS: GLUCOSE,RANDOM 95 mg/dL (70-105)
[2020-07-26 06:21] LABS: AMMONIA < 10 umol/L (11-32)
[2020-07-26] MEDS: INSULIN HUMULIN R 100 UNIT/ML 3ML SQ SCH ×2 (06:22→11:30)
[2020-07-26 08:00] VITALS: BP 190/62
[2020-07-26 08:15] LABS: BASOPHILS % (AUTO) 0.7 % (0.0-5.0); HEMATOCRIT 46.4 % (36-48); PLATELET COUNT (AUTO) 250 K/uL (130-400); RED BLOOD CELL COUNT(AUTO) 4.64 MIL/uL (4.00-5.50); RED CELL DISTRIBUTION WIDTH 12.6 % (11.0-15.5); WHITE BLOOD COUNT (AUTO) 8.6 K/uL (4.8-10.8)
[2020-07-26] MEDS: ASCORBIC ACID 500 MG TAB PO SCH (08:59)
[2020-07-26] MEDS: AZITHROMYCIN 250 MG TABLET PO SCH (08:59)
[2020-07-26] MEDS: ZINC SULFATE 220 CAPSULE PO SCH (08:59)
[2020-07-26] MEDS: Vitamin B Complex/Vit C/Folic Acid PO SCH (08:59)
[2020-07-26] MEDS: CEPHALEXIN 500 MG CAPSULE PO SCH (08:59)
[2020-07-26] MEDS: AMLODIPINE 5 MG TAB PO SCH (09:00)
[2020-07-26] MEDS: ACETAMINOPHEN 325 MG TAB PO PRN (09:00)
[2020-07-26] MEDS: DEXAMETHASONE 4 MG TAB PO SCH (09:01)
[2020-07-26] MEDS: METOPROLOL SUCCINATE 50 MG TAB.SR.24H PO SCH (09:04)
[2020-07-26 12:00] VITALS: BP 172/55
[2020-12-09] MEDS ORDERED: GABA-529 PO (11:21)
[2020-12-09] MEDS ORDERED: CRAN500T3 PO (11:26)
[2020-12-09] MEDS ORDERED: MONT-39 PO (11:26)
[2020-12-09] MEDS ORDERED: INSU200I4 SQ (11:26)
[2020-12-09] MEDS ORDERED: METO-391 PO (11:26)
[2020-12-09] MEDS ORDERED: SEMA1PEN3 SQ (11:26)
[2020-12-09] MEDS ORDERED: FOLI0.8T22 PO (11:26)
[2020-12-09] MEDS ORDERED: vitamin d PO (11:26)
[2020-12-09] MEDS ORDERED: ALPR0.5T PO (11:26)
[2020-12-09] MEDS ORDERED: FOLI0.8T43 PO (11:26)
[2020-12-09] MEDS ORDERED: LISI10TA24 PO (11:26)
== END 2020-07-26 12:30 | DRG 871 ==
LOC: EDH 07:42 → EDHIP 14:09 → 4AH 22:08
PROVIDERS: ADMIT Internal Medicine; ATTEND Internal Medicine
PROC: 5A1D70Z Performance of Urinary Filtration, Intermittent, Less than 6 Hours Per Day (ICD-10-PCS; principal; 2020-07-23)
PROC: 5A1D70Z Performance of Urinary Filtration, Intermittent, Less than 6 Hours Per Day (ICD-10-PCS; 2020-07-25)
DX: A41.9 Sepsis, unspecified organism (principal); U07.1 COVID-19; J12.82 Pneumonia due to coronavirus disease 2019; N18.6 End stage renal disease; G93.41 Metabolic encephalopathy; J96.01 Acute respiratory failure with hypoxia; J12.81 Pneumonia due to SARS-associated coronavirus; N17.9 Acute kidney failure, unspecified; D68.59 Other primary thrombophilia; J44.0 Chronic obstructive pulmonary disease with (acute) lower respiratory infection; I50.32 Chronic diastolic (congestive) heart failure; I13.2 Hypertensive heart and chronic kidney disease with heart failure and with stage 5 chronic kidney disease, or end stage renal disease; I67.82 Cerebral ischemia; D63.8 Anemia in other chronic diseases classified elsewhere; E11.51 Type 2 diabetes mellitus with diabetic peripheral angiopathy without gangrene; E11.22 Type 2 diabetes mellitus with diabetic chronic kidney disease; G47.33 Obstructive sleep apnea (adult) (pediatric); E78.5 Hyperlipidemia, unspecified; E66.01 Morbid (severe) obesity due to excess calories; F32.9 Major depressive disorder, single episode, unspecified; E11.40 Type 2 diabetes mellitus with diabetic neuropathy, unspecified; Z86.73 Personal history of transient ischemic attack (TIA), and cerebral infarction without residual deficits; Z96.653 Presence of artificial knee joint, bilateral; Z90.49 Acquired absence of other specified parts of digestive tract; Z99.2 Dependence on renal dialysis; Z83.3 Family history of diabetes mellitus; Z82.5 Family history of asthma and other chronic lower respiratory diseases; Z82.49 Family history of ischemic heart disease and other diseases of the circulatory system; Z82.3 Family history of stroke
CPT/HCPCS: 36415; 70450; 70551; 71045; 71250; 73030; 74150; 80048; 80053; 80074; 81001; 82140; 82550; 82607; 82728; 82948; 83036; 83605; 83615; 83874; 84100; 84145; 84443; 84484; 85025; 85378; 85610; 85651; 85730; 86140; 86900; 86901; 87040; 87077; 87088; 87186; 87426; 90935; 93005; G0378; J0456; J0696; J1100; J1644; J1650; J1815; J3490; J7050; J8540; U0003

== ENCOUNTER 2020-12-10 10:18 | Observation (INO) | payer MEDICARE ==
[2020-12-05 10:20] LABS: BASOPHILS % (AUTO) 1.3 % (0.0-5.0); EOSINOPHILS % (AUTO) 3.6 % (0.0-8.0); HEMATOCRIT 45.6 % (36-48); LYMPHOCYTES % (AUTO) 15.5 % (21.0-51.0); MEAN CORPUSCULAR HEMOGLOBIN 30.8 pg (27.0-33.0); MEAN CORPUSCULAR HGB CONC 30.7 g/dL (32.0-36.0); MEAN CORPUSCULAR VOLUME 100.2 fL (79-99); MONOCYTES % (AUTO) 12.9 % (3.0-13.0); PLATELET COUNT (AUTO) 238 K/uL (130-400); RED BLOOD CELL COUNT(AUTO) 4.55 MIL/uL (4.00-5.50); RED CELL DISTRIBUTION WIDTH 14.3 % (11.0-15.5)
[2020-12-05 10:33] LABS: INR 1.11 (0.85-1.15)
[2020-12-05 10:35] LABS: PARTIAL THROMBOPLASTIN TIME 29.7 SEC (26.3-35.5)
[2020-12-05 10:38] LABS: ALBUMIN 3.4 g/dL (3.5-5.0); BILIRUBIN,TOTAL 0.3 mg/dL (0.2-1.0); CREATININE 2.7 mg/dL (0.5-1.5); POTASSIUM 5.5 mmol/L (3.5-5.1); TOTAL PROTEIN, SERUM 7.5 g/dL (6.0-8.3)
[2020-12-09 11:06] VITALS: BP 191/69
[~2020-12-10] VITALS: Ht 154.9 cm; Wt 79.4 kg
[2020-12-10] VITALS (28 sets, daily range): BP systolic 103–176; BP diastolic 40–71
[~2020-12-10 10:18] MED LIST changes: +0.9%NACL 1000ML 1,000 ML IV SCH; +ALPR0.5T PO; -ALPR0.5T8 PO; -ALPR1TAB7 PO; -ASPI-1005 PO; -CIPOTIC OTIC; -CLOP75TA14 PO; +CRAN500T3 PO; -FAMO20TA8 PO; -FLUT16H NS; +FOLI0.8T43 PO; -FOLI1TAB85 PO; -INSU100V37 SQ; +INSU200I4 SQ; -IPRA3AMP24 IH; -L.AC1CAP6 PO; -LIDOCAINE CREAM; +METO-391 PO; -METO-408 PO; +MONT10TA32 PO; -OFLO5DRO21 OT; -POLY17PO4 PO; +SEMA1PEN3 SQ; -SEVE800T7 PO; +vitamin d PO
[2020-12-10] MEDS ORDERED: IPRATROPIUM/ALBUTEROL SULFATE 3 ML SOLUTION IH ONE (11:53)
[2020-12-10] MEDS ORDERED: LIDOCAINE PF 100MG/5ML (2%) SYRINGE 5ML ONE (11:54)
[2020-12-10] MEDS ORDERED: PROPOFOL 10 MG/ML 20ML VIAL IV ONE (11:54)
[2020-12-10] MEDS ORDERED: MIDAZOLAM HCL 1 MG/ML 2ML VIAL ONE (11:55)
[2020-12-10] MEDS ORDERED: HEPARIN 10,000 UNIT/10ML (1,000 UNIT/ML) VIAL ONE (11:57)
[2020-12-10] MEDS ORDERED: ROPIVACAINE 0.5% 5MG/ML 30ML IJ ONE (11:58)
[2020-12-10] MEDS ORDERED: CEFAZOLIN SODIUM 1 GM VIAL ONE (12:20)
[2020-12-10] MEDS: CEFAZOLIN SODIUM 1 GM VIAL IVP ONE ×2 (12:45→13:15)
[2020-12-10] MEDS ORDERED: PHENYLEPHRINE HCL 10 MG/ML 1ML VIAL IV ONE ×2 (13:13→13:14)
[2020-12-10] MEDS ORDERED: FENTANYL CITRATE PF 50 MCG/1 ML 2ML VIAL ONE ×2 (13:42→16:31)
[2020-12-10] MEDS ORDERED: ROCURONIUM 10MG/1ML SYR 10 MG/ML ML ONE (14:32)
[2020-12-10] MEDS ORDERED: GLYCOPYRROLATE 1 MG/5 ML SYRINGE ONE ×2 (15:46→16:17)
[2020-12-10 19:08] LABS: CREATININE 2.6 mg/dL (0.5-1.5); POTASSIUM 4.6 mmol/L (3.5-5.1)
[2020-12-10] MEDS ORDERED: ACETAMINOPHEN WITH CODEINE 1 TAB TAB ONE (20:52)
[2020-12-10] MEDS ORDERED: NITROGLYCERIN 0.4 MG SL TAB SL PRN (21:45)
[2020-12-10] MEDS ORDERED: [UNRECOGNIZED DRUG - REMARK] MISC SCH (22:00)
[2020-12-10] MEDS ORDERED: DOCUSATE CALCIUM 240 MG CAP PO PRN (22:00)
[2020-12-10] MEDS ORDERED: ALPRAZOLAM 0.5 MG TABLET PO PRN (22:00)
[2020-12-10] MEDS ORDERED: [UNRECOGNIZED DRUG - REMARK] MISC SCH (22:00)
[2020-12-11] VITALS (7 sets, daily range): BP systolic 148–176; BP diastolic 51–74
[2020-12-11] MEDS: AMLODIPINE 5 MG TAB PO SCH ×2 (08:44→21:04)
[2020-12-11] MEDS: Vitamin B Complex/Vit C/Folic Acid PO SCH (08:44)
[2020-12-11] MEDS: CRANBERRY 500 MG PO SCH (08:45)
[2020-12-11] MEDS: SEMAGLUTIDE 0.5 MG PO SCH (08:45)
[2020-12-11] MEDS: FUROSEMIDE 40 MG TABLET PO SCH (08:45)
[2020-12-11] MEDS: INSULIN DEGLUDEC SQ SCH (08:45)
[2020-12-11] MEDS ORDERED: METOPROLOL SUCCINATE 50 MG TAB.SR.24H PO SCH (09:00)
[2020-12-11 14:01] LABS: CREATININE 3.6 mg/dL (0.5-1.5); POTASSIUM 4.5 mmol/L (3.5-5.1)
[2020-12-11 14:16] LABS: PHOSPHORUS 4.9 mg/dL (2.5-4.9); THYROID STIMULATING HORMONE 0.83 uIU/mL (0.36-3.74)
[2020-12-11] MEDS: LISINOPRIL 20 MG TABLET PO SCH (16:04)
[2020-12-11] MEDS ORDERED: CITALOPRAM 20 MG TABLET PO SCH (21:00)
[2020-12-11] MEDS ORDERED: LISINOPRIL 20 MG TABLET PO SCH (21:00)
[2020-12-11] MEDS ORDERED: GABAPENTIN 100 MG CAPSULE PO SCH (21:00)
[2020-12-11] MEDS ORDERED: ARIPIPRAZOLE 5 MG TABLET PO SCH (21:00)
[2020-12-11] MEDS ORDERED: MONTELUKAST SODIUM 10 MG TAB PO SCH (21:00)
[2020-12-11] MEDS ORDERED: HYDROMORPHONE 0.5 MG SYG (0.5MG/0.5ML) IVP PRN (23:00)
[2020-12-12] VITALS (16 sets, daily range): BP systolic 151–280; BP diastolic 61–83
[2020-12-12 07:40] LABS: BASOPHILS % (AUTO) 1.4 % (0.0-5.0); EOSINOPHILS % (AUTO) 3.6 % (0.0-8.0); HEMATOCRIT 44.1 % (36-48); LYMPHOCYTES % (AUTO) 18.2 % (21.0-51.0); MEAN CORPUSCULAR HEMOGLOBIN 29.9 pg (27.0-33.0); MEAN CORPUSCULAR HGB CONC 29.9 g/dL (32.0-36.0); MONOCYTES % (AUTO) 12.3 % (3.0-13.0); NEUTROPHILS % (AUTO) 63.3 % (40.0-77.0); PLATELET COUNT (AUTO) 254 K/uL (130-400); RED BLOOD CELL COUNT(AUTO) 4.41 MIL/uL (4.00-5.50); RED CELL DISTRIBUTION WIDTH 13.7 % (11.0-15.5)
[2020-12-12 07:48] LABS: CREATININE 3.9 mg/dL (0.5-1.5); POTASSIUM 4.3 mmol/L (3.5-5.1)
[2020-12-12] MEDS: LISINOPRIL 20 MG TABLET PO SCH ×2 (09:00→15:02)
[2020-12-12] MEDS: CRANBERRY 500 MG PO SCH (09:00)
[2020-12-12] MEDS: SEMAGLUTIDE 0.5 MG PO SCH (09:00)
[2020-12-12] MEDS: INSULIN DEGLUDEC SQ SCH (09:00)
[2020-12-12] MEDS: METOPROLOL SUCCINATE 50 MG TAB.SR.24H PO SCH ×2 (09:00→15:02)
[2020-12-12] MEDS: AMLODIPINE 5 MG TAB PO SCH ×2 (09:00→15:02)
[2020-12-12] MEDS: FUROSEMIDE 40 MG TABLET PO SCH (10:24)
[2020-12-12] MEDS: Vitamin B Complex/Vit C/Folic Acid PO SCH (10:24)
[2020-12-12] MEDS ORDERED: HEPARIN 5,000 UNIT VIAL IV SCH (13:45)
== END 2020-12-12 19:00 | disposition home or self-care (01) ==
LOC: DAH 10:18 → 2AH 10:19 → 3AH 20:27 → 3CH 12-11 00:52 → 4CH 12-11 00:53
PROVIDERS: ADMIT Student in an Organized Health Care Education/Training Program; ATTEND Student in an Organized Health Care Education/Training Program
DX: E11.22 Type 2 diabetes mellitus with diabetic chronic kidney disease (principal); I13.2 Hypertensive heart and chronic kidney disease with heart failure and with stage 5 chronic kidney disease, or end stage renal disease; N18.6 End stage renal disease; Z20.822 Contact with and (suspected) exposure to COVID-19; R00.1 Bradycardia, unspecified; E11.40 Type 2 diabetes mellitus with diabetic neuropathy, unspecified; I50.32 Chronic diastolic (congestive) heart failure; D63.8 Anemia in other chronic diseases classified elsewhere; E78.5 Hyperlipidemia, unspecified; G47.33 Obstructive sleep apnea (adult) (pediatric); I25.10 Atherosclerotic heart disease of native coronary artery without angina pectoris; I95.1 Orthostatic hypotension; J44.9 Chronic obstructive pulmonary disease, unspecified; M19.90 Unspecified osteoarthritis, unspecified site; Z82.3 Family history of stroke; Z82.49 Family history of ischemic heart disease and other diseases of the circulatory system; Z82.5 Family history of asthma and other chronic lower respiratory diseases; Z83.3 Family history of diabetes mellitus; Z86.73 Personal history of transient ischemic attack (TIA), and cerebral infarction without residual deficits; Z96.653 Presence of artificial knee joint, bilateral; Z99.2 Dependence on renal dialysis
CPT/HCPCS: 36415 ×4; 36821; 80048 ×3; 80053; 82948 ×9; 83735; 84100; 84132; 84443; 85025 ×2; 85610; 85730; 87635; 93005 ×3; 94640; 96361 ×2; 96374; A4649 ×2; A4930; A6207; A6260; C1713 ×2; C9803; G0378 ×48; J0690; J1170; J1644 ×3; J2001; J2250; J2370; J2704; J2795; J3010 ×2; J3490 ×2; J7030; 90935

== ENCOUNTER → 2021-01-14 | Outpatient (CLI) | payer MEDICARE ==
[~2021-01-14] MED LIST changes: -0.9%NACL 1000ML 1,000 ML IV SCH
== END | disposition home or self-care (01) ==
LOC: RAH 13:35
PROVIDERS: ATTEND Student in an Organized Health Care Education/Training Program
DX: T82.868A Thrombosis due to vascular prosthetic devices, implants and grafts, initial encounter (principal); E11.22 Type 2 diabetes mellitus with diabetic chronic kidney disease; I12.0 Hypertensive chronic kidney disease with stage 5 chronic kidney disease or end stage renal disease; N18.6 End stage renal disease; N28.89 Other specified disorders of kidney and ureter; X58.XXXD Exposure to other specified factors, subsequent encounter
CPT/HCPCS: 93990

== ENCOUNTER 2021-03-02 06:41 | Inpatient (IN) | payer MEDICARE ==
[2021-02-25 17:31] LABS: BASOPHILS % (AUTO) 1.3 % (0.0-5.0); EOSINOPHILS % (AUTO) 5.1 % (0.0-8.0); HEMATOCRIT 38.9 % (36-48); LYMPHOCYTES % (AUTO) 19.8 % (21.0-51.0); MEAN CORPUSCULAR HEMOGLOBIN 31.7 pg (27.0-33.0); MEAN CORPUSCULAR HGB CONC 31.4 g/dL (32.0-36.0); MONOCYTES % (AUTO) 7.6 % (3.0-13.0); NEUTROPHILS % (AUTO) 65.5 % (40.0-77.0); PLATELET COUNT (AUTO) 266 K/uL (130-400); RED BLOOD CELL COUNT(AUTO) 3.85 MIL/uL (4.00-5.50); WHITE BLOOD COUNT (AUTO) 8.4 K/uL (4.8-10.8)
[2021-02-25 17:43] LABS: INR 1.05 (0.85-1.15); PROTHROMBIN TIME 11.4 SEC (9.6-11.6)
[2021-02-25 17:44] LABS: PARTIAL THROMBOPLASTIN TIME 22.5 SEC (26.3-35.5)
[2021-02-25 17:48] LABS: ALBUMIN 3.7 g/dL (3.5-5.0); BILIRUBIN,TOTAL 0.3 mg/dL (0.2-1.0); CREATININE 3.8 mg/dL (0.5-1.5); POTASSIUM 4.9 mmol/L (3.5-5.1); TOTAL PROTEIN, SERUM 7.5 g/dL (6.0-8.3)
[2021-02-27 11:04] VITALS: BP 187/69
[~2021-03-02] VITALS: Ht 154.9 cm; Wt 74.6 kg
[2021-03-02] VITALS (29 sets, daily range): BP systolic 83–196; BP diastolic 30–92
[~2021-03-02 06:41] MED LIST changes: +0.9%NACL 1000ML 1,000 ML IV SCH; +CEFAZOLIN SODIUM 1 GM VIAL IVP SCH
[2021-03-02] MEDS ORDERED: 0.9% NACL 500ML IV.SOLN 500 ML IV ONE (08:10)
[2021-03-02] MEDS: CEFAZOLIN SODIUM 1 GM VIAL ONE ×2 (08:57→11:20)
[2021-03-02] MEDS ORDERED: LIDOCAINE PF 100MG/5ML (2%) SYRINGE 5ML ONE (10:44)
[2021-03-02] MEDS ORDERED: SUCCINYLCHOLINE 200MG/10ML SYR ONE (10:44)
[2021-03-02] MEDS ORDERED: FENTANYL CITRATE PF 50 MCG/1 ML 2ML VIAL ONE (10:44)
[2021-03-02] MEDS ORDERED: PROPOFOL 10 MG/ML 20ML VIAL IV ONE (10:44)
[2021-03-02] MEDS ORDERED: PHENYLEPHRINE HCL 10 MG/ML 1ML VIAL IV ONE ×2 (10:49→10:50)
[2021-03-02] MEDS ORDERED: CEFAZOLIN SODIUM 1 GM VIAL IVP ONE (11:20)
[2021-03-02] MEDS ORDERED: HEPARIN 10,000 UNIT/10ML (1,000 UNIT/ML) VIAL ONE (12:17)
[2021-03-02] MEDS ORDERED: PAPAVERINE HCL 30 MG/ML 2ML VIAL ONE (12:26)
[2021-03-02] MEDS ORDERED: GLYCOPYRROLATE 1 MG/5 ML SYRINGE ONE ×2 (13:07→14:01)
[2021-03-02] MEDS ORDERED: ATROPINE 1MG SYG IVP ONE (14:16)
[2021-03-02] MEDS: INSULIN HUMULIN R 100 UNIT/ML 3ML SQ SCH ×2 (16:30→20:21)
[2021-03-02 17:57] LABS: BASOPHILS % (AUTO) 1.1 % (0.0-5.0); EOSINOPHILS % (AUTO) 3.2 % (0.0-8.0); HEMATOCRIT 40.9 % (36-48); LYMPHOCYTES % (AUTO) 20.1 % (21.0-51.0); MEAN CORPUSCULAR HEMOGLOBIN 31.6 pg (27.0-33.0); MEAN CORPUSCULAR HGB CONC 31.3 g/dL (32.0-36.0); MONOCYTES % (AUTO) 10.1 % (3.0-13.0); PLATELET COUNT (AUTO) 225 K/uL (130-400); RED BLOOD CELL COUNT(AUTO) 4.05 MIL/uL (4.00-5.50); RED CELL DISTRIBUTION WIDTH 13.6 % (11.0-15.5); WHITE BLOOD COUNT (AUTO) 9.4 K/uL (4.8-10.8)
[2021-03-02 18:08] LABS: CREATININE 3.7 mg/dL (0.5-1.5); POTASSIUM 4.5 mmol/L (3.5-5.1)
[2021-03-02 18:11] LABS: HEMOGLOBIN A1C 5.3 % (4.0-6.0)
[2021-03-02 18:14] LABS: ALBUMIN 3.3 g/dL (3.5-5.0); BILIRUBIN,TOTAL 0.4 mg/dL (0.2-1.0); MAGNESIUM 1.9 mg/dL (1.80-2.40); TOTAL PROTEIN, SERUM 7.1 g/dL (6.0-8.3)
[2021-03-02] MEDS: MONTELUKAST SODIUM 10 MG TAB PO SCH (20:17)
[2021-03-02] MEDS: CITALOPRAM 20 MG TABLET PO SCH (20:17)
[2021-03-02] MEDS: LISINOPRIL 10 MG TABLET PO SCH (20:17)
[2021-03-02] MEDS: GABAPENTIN 100 MG CAPSULE PO SCH (20:17)
[2021-03-02] MEDS: ALPRAZOLAM 0.5 MG TABLET PO PRN (20:18)
[2021-03-02] MEDS: ARIPIPRAZOLE 5 MG TABLET PO SCH (20:18)
[2021-03-02] MEDS ORDERED: BENZOCAINE/MENTH/CETYLPYRD CL 1 EACH LOZENGE MM PRN (21:00)
[2021-03-02] MEDS ORDERED: AMLODIPINE 5 MG TAB PO SCH (21:00)
[2021-03-03] VITALS (22 sets, daily range): BP systolic 101–139; BP diastolic 43–71
[2021-03-03 03:37] LABS: HEMATOCRIT 35.3 % (36-48); MEAN CORPUSCULAR HEMOGLOBIN 31.6 pg (27.0-33.0); MEAN CORPUSCULAR HGB CONC 32.3 g/dL (32.0-36.0); MEAN CORPUSCULAR VOLUME 97.8 fL (79-99); RED BLOOD CELL COUNT(AUTO) 3.61 MIL/uL (4.00-5.50); RED CELL DISTRIBUTION WIDTH 13.5 % (11.0-15.5)
[2021-03-03 03:54] LABS: CREATININE 3.8 mg/dL (0.5-1.5); POTASSIUM 4.8 mmol/L (3.5-5.1)
[2021-03-03] MEDS: INSULIN HUMULIN R 100 UNIT/ML 3ML SQ SCH ×4 (07:30→20:25)
[2021-03-03] MEDS: CRANBERRY EXTRACT 500 MG PO SCH (07:54)
[2021-03-03] MEDS ORDERED: ONDANSETRON 4MG INJ IVP PRN (08:00)
[2021-03-03] MEDS: FUROSEMIDE 40 MG TABLET PO SCH (08:16)
[2021-03-03] MEDS: Vitamin B Complex/Vit C/Folic Acid PO SCH (08:16)
[2021-03-03] MEDS: GABAPENTIN 100 MG CAPSULE PO SCH ×2 (08:17→21:19)
[2021-03-03] MEDS: DOCUSATE CALCIUM 240 MG CAP PO SCH (09:00)
[2021-03-03] MEDS: CITALOPRAM 20 MG TABLET PO SCH (21:18)
[2021-03-03] MEDS: ARIPIPRAZOLE 5 MG TABLET PO SCH (21:18)
[2021-03-03] MEDS: LISINOPRIL 10 MG TABLET PO SCH (21:19)
[2021-03-03] MEDS: MONTELUKAST SODIUM 10 MG TAB PO SCH (21:19)
[2021-03-03] MEDS: ALPRAZOLAM 0.5 MG TABLET PO PRN (21:20)
[2021-03-03] MEDS: HEPARIN 5,000 UNIT VIAL SQ SCH (21:59)
[2021-03-04] VITALS (18 sets, daily range): BP systolic 100–157; BP diastolic 38–73
[2021-03-04] MEDS: INSULIN HUMULIN R 100 UNIT/ML 3ML SQ SCH ×3 (06:16→16:30)
[2021-03-04 06:24] LABS: BASOPHILS % (AUTO) 0.9 % (0.0-5.0); EOSINOPHILS % (AUTO) 6.4 % (0.0-8.0); LYMPHOCYTES % (AUTO) 19.1 % (21.0-51.0); MEAN CORPUSCULAR HEMOGLOBIN 31.2 pg (27.0-33.0); MEAN CORPUSCULAR HGB CONC 31.2 g/dL (32.0-36.0); MONOCYTES % (AUTO) 10.5 % (3.0-13.0); NEUTROPHILS % (AUTO) 62.6 % (40.0-77.0); PLATELET COUNT (AUTO) 194 K/uL (130-400); RED CELL DISTRIBUTION WIDTH 13.2 % (11.0-15.5)
[2021-03-04] MEDS: HEPARIN 5,000 UNIT VIAL SQ SCH (06:39)
[2021-03-04 06:49] LABS: CREATININE 2.9 mg/dL (0.5-1.5); POTASSIUM 3.9 mmol/L (3.5-5.1)
[2021-03-04] MEDS: CRANBERRY EXTRACT 500 MG PO SCH (08:20)
[2021-03-04] MEDS: FUROSEMIDE 40 MG TABLET PO SCH (08:34)
[2021-03-04] MEDS: Vitamin B Complex/Vit C/Folic Acid PO SCH (08:35)
[2021-03-04] MEDS: DOCUSATE CALCIUM 240 MG CAP PO SCH (08:35)
[2021-03-04] MEDS: GABAPENTIN 100 MG CAPSULE PO SCH (08:35)
[2021-03-05 07:16] LABS: HEPATITIS Bs ANTIGEN SCREEN P Negative (Negative)
[2021-03-09] MEDS ORDERED: (Semaglutide (Ozempic) 0.5 MG) SQ SCH (09:00)
== END 2021-03-04 18:32 | disposition home or self-care (01) | DRG 264 ==
LOC: DAH 06:41 → DAHIP 06:42 → DAH 06:42 → OBSVTOIN 06:42 → DAHIP 15:29 → UNDOADMOB 15:29 → 4DH 16:33
PROVIDERS: ADMIT Internal Medicine; ATTEND Internal Medicine
PROC: 03170JD Bypass Right Brachial Artery to Upper Arm Vein with Synthetic Substitute, Open Approach (ICD-10-PCS; principal; 2021-03-02 10:52)
PROC: 5A1D70Z Performance of Urinary Filtration, Intermittent, Less than 6 Hours Per Day (ICD-10-PCS; 2021-03-03)
PROC: 5A1D70Z Performance of Urinary Filtration, Intermittent, Less than 6 Hours Per Day (ICD-10-PCS; 2021-03-04)
DX: T82.898A Other specified complication of vascular prosthetic devices, implants and grafts, initial encounter (principal); N18.6 End stage renal disease; I13.2 Hypertensive heart and chronic kidney disease with heart failure and with stage 5 chronic kidney disease, or end stage renal disease; I50.32 Chronic diastolic (congestive) heart failure; R00.1 Bradycardia, unspecified; Z20.822 Contact with and (suspected) exposure to COVID-19; E11.22 Type 2 diabetes mellitus with diabetic chronic kidney disease; E78.5 Hyperlipidemia, unspecified; E11.65 Type 2 diabetes mellitus with hyperglycemia; E11.51 Type 2 diabetes mellitus with diabetic peripheral angiopathy without gangrene; I25.10 Atherosclerotic heart disease of native coronary artery without angina pectoris; G47.33 Obstructive sleep apnea (adult) (pediatric); I95.1 Orthostatic hypotension; D63.1 Anemia in chronic kidney disease; E11.40 Type 2 diabetes mellitus with diabetic neuropathy, unspecified; E66.9 Obesity, unspecified; G52.2 Disorders of vagus nerve; I65.21 Occlusion and stenosis of right carotid artery; Z96.653 Presence of artificial knee joint, bilateral; Z68.31 Body mass index [BMI] 31.0-31.9, adult; Z86.74 Personal history of sudden cardiac arrest; Z99.2 Dependence on renal dialysis; Z90.49 Acquired absence of other specified parts of digestive tract; Z88.8 Allergy status to other drugs, medicaments and biological substances; Z86.73 Personal history of transient ischemic attack (TIA), and cerebral infarction without residual deficits; Z82.5 Family history of asthma and other chronic lower respiratory diseases; Z83.3 Family history of diabetes mellitus; Z82.3 Family history of stroke; Z82.49 Family history of ischemic heart disease and other diseases of the circulatory system; Y82.8 Other medical devices associated with adverse incidents; Y92.89 Other specified places as the place of occurrence of the external cause
CPT/HCPCS: 36415; 80048; 80053; 82550; 82948; 83036; 83735; 83874; 84132; 84484; 85025; 85027; 85610; 85730; 86704; 86706; 87340; 87635; 90935; 93005; C9803; G0378; J0330; J0461; J0690; J1644; J2001; J2370; J2405; J2440; J2704; J3010; J3490; J7040

== ENCOUNTER 2021-06-17 10:25 | Inpatient (IN) | payer MEDICARE ==
[~2021-06-17] VITALS: Ht 154.9 cm; Wt 73.0 kg
[~2021-06-17 10:25] MED LIST changes: -0.9%NACL 1000ML 1,000 ML IV SCH; -AMLO5TAB4 PO; -CEFAZOLIN SODIUM 1 GM VIAL IVP SCH; -INSU200I4 SQ; -METO-391 PO; +MONT-39 PO; -MONT10TA32 PO
[2021-06-17] MEDS ORDERED: IPRATROPIUM/ALBUTEROL SULFATE 3 ML SOLUTION IH SCH (11:00)
[2021-06-17] MEDS ORDERED: 0.9% NACL 500ML IV.SOLN 500 ML IV SCH (11:00)
[2021-06-17] MEDS ORDERED: ACETAMINOPHEN 500 MG TABLET PO SCH (11:00)
[2021-06-17 12:05] LABS: BASOPHILS % (AUTO) 0.6 % (0.0-5.0); EOSINOPHILS % (AUTO) 2.2 % (0.0-8.0); HEMATOCRIT 30.5 % (36-48); LYMPHOCYTES % (AUTO) 9.3 % (21.0-51.0); MEAN CORPUSCULAR HEMOGLOBIN 32.7 pg (27.0-33.0); MEAN CORPUSCULAR HGB CONC 30.5 g/dL (32.0-36.0); MEAN CORPUSCULAR VOLUME 107.4 fL (79-99); MONOCYTES % (AUTO) 7.3 % (3.0-13.0); NEUTROPHILS % (AUTO) 79.3 % (40.0-77.0); PLATELET COUNT (AUTO) 283 K/uL (130-400); RED BLOOD CELL COUNT(AUTO) 2.84 MIL/uL (4.00-5.50); RED CELL DISTRIBUTION WIDTH 13.2 % (11.0-15.5); WHITE BLOOD COUNT (AUTO) 11.4 K/uL (4.8-10.8)
[2021-06-17 12:14] LABS: CREATININE 5.3 mg/dL (0.5-1.5); POTASSIUM 5.2 mmol/L (3.5-5.1)
[2021-06-17 12:23] LABS: ALBUMIN 3.5 g/dL (3.5-5.0); BILIRUBIN,TOTAL 0.4 mg/dL (0.2-1.0); TOTAL PROTEIN, SERUM 7.1 g/dL (6.0-8.3)
[2021-06-17] MEDS ORDERED: ZOSYN 3.375GM+NS 50ML 50 ML IV SCH (13:00)
[2021-06-17] MEDS: HEPARIN 5,000 UNIT VIAL SQ SCH (16:46)
[2021-06-17 17:44] LABS: HEMOGLOBIN A1C 5.8 % (4.0-6.0)
[2021-06-17 17:46] LABS: INR 1.05 (0.85-1.15); PROTHROMBIN TIME 11.4 SEC (9.6-11.6)
[2021-06-17 17:47] LABS: PARTIAL THROMBOPLASTIN TIME 28.8 SEC (26.3-35.5)
[2021-06-17] MEDS: IPRATROPIUM/ALBUTEROL SULFATE 3 ML SOLUTION IH SCH ×2 (18:32→23:09)
[2021-06-17] MEDS ORDERED: ACETAMINOPHEN 500 MG TABLET ONE (19:47)
[2021-06-17] MEDS ORDERED: FAMOTIDINE 20MG VIAL IV SCH (21:00)
[2021-06-17] MEDS ORDERED: ZOSYN 3.375GM +NS 50ML IV SCH (21:00)
[2021-06-17] MEDS: INSULIN HUMULIN R 100 UNIT/ML 3ML SQ SCH (21:00)
[2021-06-17] MEDS: FAMOTIDINE 20MG TAB PO SCH (21:54)
[2021-06-17] MEDS ORDERED: NA ZIRCON CYCLOSIL(LOKELMA 10GM) PO ONE (22:00)
[2021-06-17] MEDS ORDERED: NOREPINEPHRIN 4MG/NS 250ML 250 ML IV ONE (22:08)
[2021-06-18] VITALS (12 sets, daily range): BP systolic 94–133; BP diastolic 40–77
[2021-06-18] MEDS: ZOSYN 3.375GM+NS 50ML 50 ML IV SCH ×2 (03:52→15:00)
[2021-06-18] MEDS: HEPARIN 5,000 UNIT VIAL SQ SCH ×2 (03:54→17:19)
[2021-06-18] MEDS: INSULIN HUMULIN R 100 UNIT/ML 3ML SQ SCH ×4 (05:41→20:13)
[2021-06-18 06:13] LABS: BASOPHILS % (AUTO) 0.7 % (0.0-5.0); EOSINOPHILS % (AUTO) 0.2 % (0.0-8.0); HEMATOCRIT 28.1 % (36-48); LYMPHOCYTES % (AUTO) 6.3 % (21.0-51.0); MEAN CORPUSCULAR HEMOGLOBIN 32.4 pg (27.0-33.0); MEAN CORPUSCULAR HGB CONC 30.2 g/dL (32.0-36.0); MEAN CORPUSCULAR VOLUME 107.3 fL (79-99); MONOCYTES % (AUTO) 5.6 % (3.0-13.0); PLATELET COUNT (AUTO) 269 K/uL (130-400); RED BLOOD CELL COUNT(AUTO) 2.62 MIL/uL (4.00-5.50); RED CELL DISTRIBUTION WIDTH 12.9 % (11.0-15.5); WHITE BLOOD COUNT (AUTO) 18.7 K/uL (4.8-10.8)
[2021-06-18 06:22] LABS: ALBUMIN 2.9 g/dL (3.5-5.0); BILIRUBIN,TOTAL 0.6 mg/dL (0.2-1.0); CREATININE 6.3 mg/dL (0.5-1.5); POTASSIUM 5.9 mmol/L (3.5-5.1); TOTAL PROTEIN, SERUM 6.8 g/dL (6.0-8.3)
[2021-06-18 06:47] LABS: ABG BASE EXCESS -3.4 mmol/L (-2.0-3.0); ABG HCO3 21.6 mmol/L (21.0-28.0); ABG OXYGEN SATURATION 99.7 % (95.0-99.0); ABG PCO2 39 mmHg (32-45)
[2021-06-18] MEDS: IPRATROPIUM/ALBUTEROL SULFATE 3 ML SOLUTION IH SCH ×4 (06:50→23:27)
[2021-06-18] MEDS ORDERED: NOREPINEPHRIN 4MG/NS 250ML 250 ML IV ONE (08:41)
[2021-06-18] MEDS ORDERED: KAYEXALATE 15GM/60ML PO SCH (09:00)
[2021-06-18] MEDS: FAMOTIDINE 20MG TAB PO SCH ×2 (09:01→20:09)
[2021-06-18] MEDS: SOLU-MEDROL 40MG VIAL IVP SCH ×2 (09:31→18:11)
[2021-06-18] MEDS ORDERED: MIDODRINE HCL 5 MG TABLET ONE (17:50)
[2021-06-19] VITALS (21 sets, daily range): BP systolic 100–122; BP diastolic 33–70
[2021-06-19] MEDS: SOLU-MEDROL 40MG VIAL IVP SCH ×3 (01:56→17:53)
[2021-06-19] MEDS: ZOSYN 3.375GM+NS 50ML 50 ML IV SCH ×2 (01:56→14:17)
[2021-06-19] MEDS: HEPARIN 5,000 UNIT VIAL SQ SCH ×2 (03:56→17:28)
[2021-06-19] MEDS: INSULIN HUMULIN R 100 UNIT/ML 3ML SQ SCH ×4 (03:58→19:42)
[2021-06-19 04:21] LABS: BASOPHILS % (AUTO) 0.3 % (0.0-5.0); HEMATOCRIT 23.2 % (36-48); LYMPHOCYTES % (AUTO) 7.1 % (21.0-51.0); MEAN CORPUSCULAR HEMOGLOBIN 32.5 pg (27.0-33.0); MEAN CORPUSCULAR HGB CONC 31.9 g/dL (32.0-36.0); MEAN CORPUSCULAR VOLUME 101.8 fL (79-99); NEUTROPHILS % (AUTO) 87.2 % (40.0-77.0); PLATELET COUNT (AUTO) 214 K/uL (130-400); RED BLOOD CELL COUNT(AUTO) 2.28 MIL/uL (4.00-5.50); RED CELL DISTRIBUTION WIDTH 12.6 % (11.0-15.5); WHITE BLOOD COUNT (AUTO) 8.7 K/uL (4.8-10.8)
[2021-06-19 04:55] LABS: ALBUMIN 2.7 g/dL (3.5-5.0); BILIRUBIN,TOTAL 0.4 mg/dL (0.2-1.0); TOTAL PROTEIN, SERUM 6.4 g/dL (6.0-8.3)
[2021-06-19] MEDS: IPRATROPIUM/ALBUTEROL SULFATE 3 ML SOLUTION IH SCH ×4 (06:26→23:24)
[2021-06-19 08:18] LABS: INR 1.12 (0.85-1.15); PROTHROMBIN TIME 12.1 SEC (9.6-11.6)
[2021-06-19 08:19] LABS: PARTIAL THROMBOPLASTIN TIME 33.7 SEC (26.3-35.5)
[2021-06-19] MEDS ORDERED: LACTULOSE 20 GM/30 ML UDCUP PO PRN (09:00)
[2021-06-19] MEDS: FAMOTIDINE 20MG TAB PO SCH ×2 (09:12→20:07)
[2021-06-19] MEDS: MIDODRINE HCL 5 MG TABLET PO SCH ×3 (09:12→20:08)
[2021-06-19] MEDS ORDERED: LIDOCAINE HCL 1% MDV 50ML VIAL ONE (10:31)
[2021-06-19] MEDS ORDERED: HEPARIN 1,000 UNIT VIAL ONE ×2 (10:31→10:42)
[2021-06-19] MEDS ORDERED: MIDODRINE HCL 5 MG TABLET PO SCH (13:00)
[2021-06-19] MEDS ORDERED: 0.9%NACL 50ML 50 ML IV ONE (13:59)
[2021-06-19] MEDS ORDERED: HEPARIN 5,000 UNIT VIAL IJ SCH (16:00)
[2021-06-19] MEDS ORDERED: 0.9%NACL 1000ML 1,000 ML IV ONE (16:52)
[2021-06-19] MEDS: ACETAMINOPHEN 325 MG TAB PO PRN (20:12)
[2021-06-19] MEDS: GUAIFENESIN SUGAR-FREE 100 MG/5 ML UDCUP PO PRN (22:45)
[2021-06-20] VITALS (7 sets, daily range): BP systolic 111–138; BP diastolic 41–71
[2021-06-20] MEDS: SOLU-MEDROL 40MG VIAL IVP SCH ×4 (01:17→23:59)
[2021-06-20] MEDS: GUAIFENESIN SUGAR-FREE 100 MG/5 ML UDCUP PO PRN ×3 (03:10→20:20)
[2021-06-20 03:30] LABS: BASOPHILS % (AUTO) 0.2 % (0.0-5.0); HEMATOCRIT 24.6 % (36-48); LYMPHOCYTES % (AUTO) 4.8 % (21.0-51.0); MEAN CORPUSCULAR HEMOGLOBIN 32.9 pg (27.0-33.0); MEAN CORPUSCULAR HGB CONC 32.5 g/dL (32.0-36.0); MEAN CORPUSCULAR VOLUME 101.2 fL (79-99); MONOCYTES % (AUTO) 4.5 % (3.0-13.0); NEUTROPHILS % (AUTO) 89.7 % (40.0-77.0); PLATELET COUNT (AUTO) 237 K/uL (130-400); RED BLOOD CELL COUNT(AUTO) 2.43 MIL/uL (4.00-5.50); RED CELL DISTRIBUTION WIDTH 12.9 % (11.0-15.5); WHITE BLOOD COUNT (AUTO) 12.2 K/uL (4.8-10.8)
[2021-06-20] MEDS: ZOSYN 3.375GM+NS 50ML 50 ML IV SCH ×2 (03:42→16:17)
[2021-06-20] MEDS: HEPARIN 5,000 UNIT VIAL SQ SCH ×2 (03:43→17:21)
[2021-06-20 03:45] LABS: CREATININE 5.2 mg/dL (0.5-1.5); POTASSIUM 3.8 mmol/L (3.5-5.1)
[2021-06-20] MEDS: INSULIN HUMULIN R 100 UNIT/ML 3ML SQ SCH ×4 (06:24→20:23)
[2021-06-20] MEDS: IPRATROPIUM/ALBUTEROL SULFATE 3 ML SOLUTION IH SCH ×4 (07:09→23:05)
[2021-06-20] MEDS: FAMOTIDINE 20MG TAB PO SCH ×2 (08:21→20:20)
[2021-06-20] MEDS: MIDODRINE HCL 5 MG TABLET PO SCH ×3 (08:21→20:20)
[2021-06-20] MEDS ORDERED: FLUCONAZOLE 200 MG/NS 100 ML 100 ML IV SCH (10:40)
[2021-06-20] MEDS: BENZONATATE 100 MG CAPSULE PO PRN (20:20)
[2021-06-20] MEDS: ACETAMINOPHEN 325 MG TAB PO PRN (23:59)
[2021-06-21 03:54] LABS: BASOPHILS % (AUTO) 0.1 % (0.0-5.0); HEMATOCRIT 23.7 % (36-48); LYMPHOCYTES % (AUTO) 5.8 % (21.0-51.0); MEAN CORPUSCULAR HEMOGLOBIN 32.1 pg (27.0-33.0); MEAN CORPUSCULAR HGB CONC 32.5 g/dL (32.0-36.0); MEAN CORPUSCULAR VOLUME 98.8 fL (79-99); MONOCYTES % (AUTO) 2.7 % (3.0-13.0); NEUTROPHILS % (AUTO) 89.4 % (40.0-77.0); PLATELET COUNT (AUTO) 258 K/uL (130-400); RED CELL DISTRIBUTION WIDTH 12.7 % (11.0-15.5); WHITE BLOOD COUNT (AUTO) 10.4 K/uL (4.8-10.8)
[2021-06-21 04:00] VITALS: BP 133/47
[2021-06-21] MEDS: ZOSYN 3.375GM+NS 50ML 50 ML IV SCH ×2 (04:05→14:52)
[2021-06-21] MEDS: HEPARIN 5,000 UNIT VIAL SQ SCH ×2 (04:06→16:56)
[2021-06-21 04:14] LABS: BILIRUBIN,TOTAL 0.4 mg/dL (0.2-1.0); CREATININE 6.2 mg/dL (0.5-1.5); POTASSIUM 3.7 mmol/L (3.5-5.1); TOTAL PROTEIN, SERUM 6.7 g/dL (6.0-8.3)
[2021-06-21 04:32] LABS: INR 1.1 (0.85-1.15); PROTHROMBIN TIME 11.9 SEC (9.6-11.6)
[2021-06-21] MEDS: INSULIN HUMULIN R 100 UNIT/ML 3ML SQ SCH ×4 (04:32→20:06)
[2021-06-21 04:33] LABS: PARTIAL THROMBOPLASTIN TIME 23.6 SEC (26.3-35.5)
[2021-06-21] MEDS: BENZONATATE 100 MG CAPSULE PO PRN ×2 (05:44→20:03)
[2021-06-21] MEDS: GUAIFENESIN SUGAR-FREE 100 MG/5 ML UDCUP PO PRN ×2 (05:45→20:03)
[2021-06-21] MEDS: IPRATROPIUM/ALBUTEROL SULFATE 3 ML SOLUTION IH SCH ×3 (06:58→19:19)
[2021-06-21 08:00] VITALS: BP 133/78
[2021-06-21] MEDS: MIDODRINE HCL 5 MG TABLET PO SCH ×3 (08:46→20:06)
[2021-06-21] MEDS: FAMOTIDINE 20MG TAB PO SCH ×2 (08:46→20:03)
[2021-06-21] MEDS: SOLU-MEDROL 40MG VIAL IVP SCH ×2 (10:19→20:06)
[2021-06-21 11:57] VITALS: BP 133/36
[2021-06-21 16:00] VITALS: BP 127/49
[2021-06-21 20:00] VITALS: BP 121/49
[2021-06-22] VITALS (22 sets, daily range): BP systolic 102–127; BP diastolic 41–87
[2021-06-22] MEDS: IPRATROPIUM/ALBUTEROL SULFATE 3 ML SOLUTION IH SCH ×5 (00:32→23:56)
[2021-06-22] MEDS: ZOSYN 3.375GM+NS 50ML 50 ML IV SCH ×2 (03:12→14:23)
[2021-06-22] MEDS: HEPARIN 5,000 UNIT VIAL SQ SCH ×2 (04:30→16:31)
[2021-06-22 04:37] LABS: BASOPHILS % (AUTO) 0.2 % (0.0-5.0); HEMATOCRIT 33.1 % (36-48); LYMPHOCYTES % (AUTO) 8.1 % (21.0-51.0); MEAN CORPUSCULAR HEMOGLOBIN 32.4 pg (27.0-33.0); MEAN CORPUSCULAR VOLUME 101.2 fL (79-99); MONOCYTES % (AUTO) 4.5 % (3.0-13.0); NUCLEATED RED BLOOD CELLS 0.2 % (0.0-0.19); PLATELET COUNT (AUTO) 158 K/uL (130-400); RED BLOOD CELL COUNT(AUTO) 3.27 MIL/uL (4.00-5.50); RED CELL DISTRIBUTION WIDTH 12.9 % (11.0-15.5); WHITE BLOOD COUNT (AUTO) 9.1 K/uL (4.8-10.8)
[2021-06-22 04:49] LABS: ALBUMIN 3.1 g/dL (3.5-5.0); BILIRUBIN,TOTAL 0.6 mg/dL (0.2-1.0); CREATININE 7.1 mg/dL (0.5-1.5); POTASSIUM 4.4 mmol/L (3.5-5.1); TOTAL PROTEIN, SERUM 6.7 g/dL (6.0-8.3)
[2021-06-22] MEDS: INSULIN HUMULIN R 100 UNIT/ML 3ML SQ SCH ×4 (05:32→20:31)
[2021-06-22] MEDS: FAMOTIDINE 20MG TAB PO SCH ×2 (08:14→19:37)
[2021-06-22] MEDS: MIDODRINE HCL 5 MG TABLET PO SCH ×3 (08:14→19:37)
[2021-06-22] MEDS: SOLU-MEDROL 40MG VIAL IVP SCH ×2 (08:31→19:37)
[2021-06-22] MEDS ORDERED: 0.9%NACL 1000ML 2,000 ML IV ONE (08:54)
[2021-06-22] MEDS ORDERED: LOPERAMIDE HCL 2 MG CAP PO PRN (19:30)
[2021-06-22] MEDS ORDERED: LOPERAMIDE HCL 2 MG CAP PO ONE (19:33)
[2021-06-22] MEDS: BENZONATATE 100 MG CAPSULE PO PRN (19:37)
[2021-06-23] MEDS: ZOSYN 3.375GM+NS 50ML 50 ML IV SCH ×2 (03:19→13:05)
[2021-06-23] MEDS: HEPARIN 5,000 UNIT VIAL SQ SCH ×2 (03:24→16:45)
[2021-06-23 03:57] VITALS: BP 99/63
[2021-06-23] MEDS: INSULIN HUMULIN R 100 UNIT/ML 3ML SQ SCH ×4 (05:57→20:22)
[2021-06-23] MEDS: IPRATROPIUM/ALBUTEROL SULFATE 3 ML SOLUTION IH SCH ×4 (06:25→23:17)
[2021-06-23 08:00] VITALS: BP 114/35
[2021-06-23 09:14] LABS: HEMATOCRIT 24.4 % (36-48); MEAN CORPUSCULAR HEMOGLOBIN 32.5 pg (27.0-33.0); MEAN CORPUSCULAR HGB CONC 32.4 g/dL (32.0-36.0); MEAN CORPUSCULAR VOLUME 100.4 fL (79-99); NUCLEATED RED BLOOD CELLS 0.2 % (0.0-0.19); RED BLOOD CELL COUNT(AUTO) 2.43 MIL/uL (4.00-5.50); RED CELL DISTRIBUTION WIDTH 12.9 % (11.0-15.5); WHITE BLOOD COUNT (AUTO) 9.8 K/uL (4.8-10.8)
[2021-06-23 09:21] LABS: CREATININE 6.2 mg/dL (0.5-1.5); POTASSIUM 3.9 mmol/L (3.5-5.1)
[2021-06-23] MEDS: MIDODRINE HCL 5 MG TABLET PO SCH ×3 (09:33→20:04)
[2021-06-23] MEDS: FAMOTIDINE 20MG TAB PO SCH ×2 (09:33→20:03)
[2021-06-23] MEDS: SOLU-MEDROL 40MG VIAL IVP SCH ×2 (09:33→20:03)
[2021-06-23 12:00] VITALS: BP 125/38
[2021-06-23] MEDS ORDERED: 0.9%NACL 50ML 50 ML IV ONE (12:57)
[2021-06-23 16:00] VITALS: BP 127/42
[2021-06-23 19:45] VITALS: BP 145/77
[2021-06-23 23:46] VITALS: BP 144/44
[2021-06-24] VITALS (25 sets, daily range): BP systolic 97–140; BP diastolic 31–94
[2021-06-24 04:36] LABS: HEMATOCRIT 23.4 % (36-48); MEAN CORPUSCULAR HEMOGLOBIN 32.9 pg (27.0-33.0); MEAN CORPUSCULAR HGB CONC 34.2 g/dL (32.0-36.0); MEAN CORPUSCULAR VOLUME 96.3 fL (79-99); NUCLEATED RED BLOOD CELLS 0.2 % (0.0-0.19); RED BLOOD CELL COUNT(AUTO) 2.43 MIL/uL (4.00-5.50); RED CELL DISTRIBUTION WIDTH 12.5 % (11.0-15.5); WHITE BLOOD COUNT (AUTO) 11.3 K/uL (4.8-10.8)
[2021-06-24 04:46] LABS: MAGNESIUM 2.3 mg/dL (1.80-2.40); POTASSIUM 3.6 mmol/L (3.5-5.1)
[2021-06-24] MEDS: ZOSYN 3.375GM+NS 50ML 50 ML IV SCH ×2 (05:36→15:00)
[2021-06-24] MEDS: HEPARIN 5,000 UNIT VIAL SQ SCH ×2 (05:40→16:30)
[2021-06-24] MEDS: INSULIN HUMULIN R 100 UNIT/ML 3ML SQ SCH ×3 (05:41→21:00)
[2021-06-24] MEDS: IPRATROPIUM/ALBUTEROL SULFATE 3 ML SOLUTION IH SCH ×3 (06:50→23:37)
[2021-06-24] MEDS: MIDODRINE HCL 5 MG TABLET PO SCH ×3 (09:00→21:13)
[2021-06-24] MEDS: FAMOTIDINE 20MG TAB PO SCH ×2 (09:00→21:16)
[2021-06-24] MEDS: SOLU-MEDROL 40MG VIAL IVP SCH ×2 (11:45→21:13)
[2021-06-24] MEDS ORDERED: EPOETIN ALFA-EPBX (ESRD) 10,000 UNIT/ML VIAL SQ SCH (12:00)
[2021-06-24] MEDS ORDERED: HEPARIN 10,000 UNIT/10ML (1,000 UNIT/ML) VIAL ONE (14:38)
[2021-06-24] MEDS ORDERED: LIDOCAINE HCL 1% MDV 50ML VIAL ONE (14:39)
[2021-06-24] MEDS ORDERED: IODIXANOL 320 MG/ML 100 ML VIAL ONE (14:44)
[2021-06-24] MEDS ORDERED: HEPARIN 1,000 UNIT VIAL ONE ×2 (15:17→15:18)
[2021-06-25] VITALS: BP 128/70
[2021-06-25] MEDS ORDERED: PHARMACY COMMUNICATION MISC SCH (01:30)
[2021-06-25] MEDS: ZOSYN 3.375GM+NS 50ML 50 ML IV SCH (02:01)
[2021-06-25] MEDS: HEPARIN 5,000 UNIT VIAL SQ SCH (02:02)
[2021-06-25 03:52] VITALS: BP 126/58
[2021-06-25 04:45] LABS: HEMATOCRIT 24.4 % (36-48); MEAN CORPUSCULAR HEMOGLOBIN 32.5 pg (27.0-33.0); MEAN CORPUSCULAR VOLUME 101.7 fL (79-99); PLATELET COUNT (AUTO) 293 K/uL (130-400); RED CELL DISTRIBUTION WIDTH 13.2 % (11.0-15.5); WHITE BLOOD COUNT (AUTO) 12.5 K/uL (4.8-10.8)
[2021-06-25 05:04] LABS: BILIRUBIN,TOTAL 0.6 mg/dL (0.2-1.0); POTASSIUM 3.9 mmol/L (3.5-5.1); TOTAL PROTEIN, SERUM 6.2 g/dL (6.0-8.3)
[2021-06-25 05:45] LABS: LYMPHOCYTES % (MANUAL) 8 % (22-44); MONOCYTES % (MANUAL) 3 % (2-9); SEGMENTED NEUTROPHILS % 89 % (40-70)
[2021-06-25 05:46] LABS: MAN.DIFF COMMENT-IMPRESSION MANUAL DIFFERENTIAL; PLATELET MORPHOLOGY COMMENT ADEQUATE
[2021-06-25] MEDS: INSULIN HUMULIN R 100 UNIT/ML 3ML SQ SCH ×2 (06:04→11:59)
[2021-06-25] MEDS: IPRATROPIUM/ALBUTEROL SULFATE 3 ML SOLUTION IH SCH ×2 (06:19→11:15)
[2021-06-25 08:00] VITALS: BP 126/40
[2021-06-25] MEDS: MIDODRINE HCL 5 MG TABLET PO SCH ×2 (09:33→12:17)
[2021-06-25] MEDS: SOLU-MEDROL 40MG VIAL IVP SCH (09:33)
[2021-06-25] MEDS: FAMOTIDINE 20MG TAB PO SCH (09:33)
[2021-06-25] MEDS ORDERED: CEFTRIAXONE 1G VIAL IVP SCH (12:00)
== END 2021-06-25 17:55 | DRG 871 ==
LOC: EDH 10:25 → EDHIP 16:10 → 2CH 06-18 02:53 → 2DH 06-19 12:46 → 4BH 06-24 15:17
PROVIDERS: ADMIT Hospitalist; ATTEND Hospitalist
PROC: 5A09357 Assistance with Respiratory Ventilation, Less than 24 Consecutive Hours, Continuous Positive Airway Pressure (ICD-10-PCS; 2021-06-18)
PROC: 5A1D70Z Performance of Urinary Filtration, Intermittent, Less than 6 Hours Per Day (ICD-10-PCS; 2021-06-19)
PROC: 06HY33Z Insertion of Infusion Device into Lower Vein, Percutaneous Approach (ICD-10-PCS; 2021-06-19)
PROC: 5A1D70Z Performance of Urinary Filtration, Intermittent, Less than 6 Hours Per Day (ICD-10-PCS; 2021-06-22)
PROC: 0JH63XZ Insertion of Tunneled Vascular Access Device into Chest Subcutaneous Tissue and Fascia, Percutaneous Approach (ICD-10-PCS; principal; 2021-06-24)
PROC: 06H033Z Insertion of Infusion Device into Inferior Vena Cava, Percutaneous Approach (ICD-10-PCS; 2021-06-24)
PROC: B5191ZA Fluoroscopy of Inferior Vena Cava using Low Osmolar Contrast, Guidance (ICD-10-PCS; 2021-06-24)
PROC: B549ZZA Ultrasonography of Inferior Vena Cava, Guidance (ICD-10-PCS; 2021-06-24)
PROC: 5A1D70Z Performance of Urinary Filtration, Intermittent, Less than 6 Hours Per Day (ICD-10-PCS; 2021-06-24)
PROC: B51W1ZZ Fluoroscopy of Dialysis Shunt/Fistula using Low Osmolar Contrast (ICD-10-PCS; 2021-06-24)
PROC: B5161ZZ Fluoroscopy of Right Subclavian Vein using Low Osmolar Contrast (ICD-10-PCS; 2021-06-24)
PROC: 05JY3ZZ Inspection of Upper Vein, Percutaneous Approach (ICD-10-PCS; 2021-06-24)
DX: A41.9 Sepsis, unspecified organism (principal); J12.1 Respiratory syncytial virus pneumonia; J96.01 Acute respiratory failure with hypoxia; N18.6 End stage renal disease; I21.A1 Myocardial infarction type 2; J15.9 Unspecified bacterial pneumonia; T82.818A Embolism due to vascular prosthetic devices, implants and grafts, initial encounter; E87.1 Hypo-osmolality and hyponatremia; I50.32 Chronic diastolic (congestive) heart failure; I13.2 Hypertensive heart and chronic kidney disease with heart failure and with stage 5 chronic kidney disease, or end stage renal disease; B37.89 Other sites of candidiasis; I87.1 Compression of vein; E87.5 Hyperkalemia; E11.22 Type 2 diabetes mellitus with diabetic chronic kidney disease; Z20.822 Contact with and (suspected) exposure to COVID-19; E78.00 Pure hypercholesterolemia, unspecified; Z96.653 Presence of artificial knee joint, bilateral; E78.5 Hyperlipidemia, unspecified; D63.8 Anemia in other chronic diseases classified elsewhere; F32.A Depression, unspecified; I44.7 Left bundle-branch block, unspecified; I95.1 Orthostatic hypotension; Y83.2 Surgical operation with anastomosis, bypass or graft as the cause of abnormal reaction of the patient, or of later complication, without mention of misadventure at the time of the procedure; Z99.2 Dependence on renal dialysis; Z90.49 Acquired absence of other specified parts of digestive tract; Z79.4 Long term (current) use of insulin; Z79.899 Other long term (current) drug therapy; Y92.89 Other specified places as the place of occurrence of the external cause; Z88.8 Allergy status to other drugs, medicaments and biological substances; Z86.73 Personal history of transient ischemic attack (TIA), and cerebral infarction without residual deficits; Z82.3 Family history of stroke; Z83.3 Family history of diabetes mellitus; Z82.5 Family history of asthma and other chronic lower respiratory diseases; Z82.49 Family history of ischemic heart disease and other diseases of the circulatory system
CPT/HCPCS: 31720; 36415; 36556; 36558; 36600; 36901; 71045; 72170; 80048; 80053; 82550; 82803; 82948; 83036; 83605; 83735; 83874; 84100; 84132; 84145; 84484; 85025; 85027; 85610; 85651; 85730; 86704; 86706; 87040; 87071; 87205; 87340; 87635; 87804; 87807; 90935; 93005; 94640; 94660; 94664; 97039; 99291; C1750; C1752; C1769; C1894; C9803; G0378; J0696; J1450; J1644; J1815; J2543; J2920; J3490; J7030; J7040; Q9967

== ENCOUNTER 2021-07-17 15:10 | Emergency (ER) | payer MEDICARE ==
[~2021-07-17] VITALS: Ht 154.9 cm; Wt 71.2 kg
[~2021-07-17 15:10] MED LIST changes: -ARIP10TA54 PO; -BUDE10.2 IH; -CITA-107 PO; -DOCU240C80 PO; -FURO40TA5 PO; -NITR0.4T50 SL
[2021-07-17 16:05] VITALS: BP 97/31
== END 2021-07-17 16:53 | disposition home or self-care (01) ==
LOC: EDH 15:10
DX: I12.0 Hypertensive chronic kidney disease with stage 5 chronic kidney disease or end stage renal disease (principal); D63.1 Anemia in chronic kidney disease; E10.22 Type 1 diabetes mellitus with diabetic chronic kidney disease; N18.6 End stage renal disease; E78.00 Pure hypercholesterolemia, unspecified; F41.9 Anxiety disorder, unspecified; I48.91 Unspecified atrial fibrillation; Z88.6 Allergy status to analgesic agent; Z99.2 Dependence on renal dialysis; Z96.653 Presence of artificial knee joint, bilateral
CPT/HCPCS: 93005